=== PATIENT | female | born 1945 | race African-American/Black ===

== ENCOUNTER 2018-07-31 16:03 | Emergency (ER) | payer OTHER ==
[2018-07-31 17:03] LABS: Absolute Lymphocytes (CBC) 2.7 K/uL (0.7-4.9); Absolute Monocytes 0.3 K/uL (0.1-1.3); Absolute Neutrophil 1.2 K/uL (1.8-8.0); Hematocrit 33.4 % (36.0-45.0); Lymphocytes % 63.3 % (15.3-44.8); MPV 10.3 fL (7.6-11.3); Monocytes % 7.9 % (3.3-12.3); RBC Red Blood Cell Count 3.89 M/uL (3.86-4.86)
[2018-07-31 17:19] LABS: Albumin 2.8 g/dL (3.4-5.0); Bilirubin Total 0.7 mg/dL (0.2-1.0); Protein, Total 8.3 g/dL (6.4-8.2)
[2018-07-31 17:21] LABS: Potassium 2.7 mmol/L (3.5-5.1)
[2018-07-31 17:27] LABS: Blood Morphology Comment NOTED (NOT SEEN); Target Cells 2+
[2018-07-31 17:30] LABS: Platelet Estimate ADEQ
[2018-07-31 17:31] LABS: Platelets, Giant NOTED
[2018-07-31] MEDS ORDERED: NA CHLORIDE 0.9% 250 ML ONE (17:35)
[2018-07-31] MEDS ORDERED: KCL 20 MEQ/100 mL IVPB 20 MEQ/100 ML BAG IV ONE (17:35)
[2018-07-31] MEDS ORDERED: POTASSIUM 25 MEQ EFFERV TAB ONE (17:35)
[2018-07-31 20:23] LABS: BUN Blood Urea Nitrogen 8 mg/dL (7-18); Bicarbonate 28 mmol/L (21-32); Glucose Level 74 mg/dL (74-106); Potassium 3.8 mmol/L (3.5-5.1); Sodium Level 138 mmol/L (136-145)
--- NOTE | 2018-07-31 21:01 | EDPHYS ---
Physician Documentation [facility] Name: Karol Beckett Age: 72 yrs Sex: Female : 1945 Arrival Date: 07/31/2018 Time: 16:05 Bed 26 Private MD: Dario Valles R ED Physician Seth Ochoa HPI: 07/31 16:35 This 72 yrs old Black Female presents to ER via Ambulatory with complaints of Skin cp Sore(s). 16:35 The patient's rash thought to be caused by an unknown cause. The rash is located on the cp body diffusely. The rash can be described as erythematous, papular. Onset: The symptoms/episode began/occurred this morning. Associated signs and symptoms: Pertinent positives: weight loss, Pertinent negatives: difficulty breathing, fever, itching. 16:35 The patient has experienced similar episodes in the past, multiple times, Patient cp reports recently finishing RX for oral antibiotic. 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 - Social history:: Smoking status: Patient/guardian denies using tobacco. - Ebola Screening: : Patient negative for fever greater than or equal to 101.5 degrees Fahrenheit, and additional compatible Ebola Virus Disease symptoms Patient denies exposure to infectious person Patient denies travel to an Ebola-affected area in the 21 days before illness onset No symptoms or risks identified at this time. ROS: 16:40 Constitutional: Positive for weight loss, Negative for body aches, chills, fever. cp 16:40 Eyes: Negative for injury, pain, redness, and discharge. cp 16:40 ENT: Negative for ear pain, sore throat, difficulty swallowing, difficulty handling secretions. 16:40 Cardiovascular: Negative for chest pain, edema, palpitations. 16:40 Respiratory: Negative for cough, shortness of breath, wheezing. 16:40 Abdomen/GI: Negative for abdominal pain, nausea, vomiting, and diarrhea, constipation. 16:40 : Negative for urinary symptoms. 16:40 Skin: Positive for rash, diffusely. 16:40 Neuro: Negative for altered mental status, headache, weakness. 16:40 All other systems are negative. Exam: 16:45 Constitutional: The patient appears in no acute distress, alert, awake, cp non-diaphoretic, non-toxic, well developed, well nourished. 16:45 Head/face: Exam is negative for obvious evidence of injury or deformity. cp 16:45 Eyes: Pupils: equal, round, and reactive to light and accomodation, Extraocular movements: intact throughout, Conjunctiva: normal, no exudate, no injection, Sclera: no appreciated abnormality, Lids and lashes: appear normal, bilaterally. 16:45 ENT: External ear(s): are unremarkable, Ear canal(s): are normal, clear, TM's: dullness, bilaterally, Nose: is normal, Mouth: Lips: moist, Oral mucosa: pink and intact, moist, Posterior pharynx: is normal, airway is patent, no erythema, no exudate, Voice: is normal. 16:45 Cardiovascular: Rate: normal, Rhythm: regular. 16:45 Respiratory: the patient does not display signs of respiratory distress, Respirations: normal, no use of accessory muscles, no retractions, no splinting, no tachypnea, labored breathing, is not present, Breath sounds: are clear throughout, no decreased breath sounds, no stridor, no wheezing. 16:45 Abdomen/GI: Exam negative for discomfort, distension, guarding. 16:45 Skin: rash can be described as erythematous, papular, multiple are open with scant drainage and mild swelling. 16:45 Neuro: Orientation: to person, place \T\ time. Mentation: is normal. 17:50 ECG was reviewed by the Attending Physician. cp Vital Signs: 16:09 BP 129 / 99; Pulse 62; Resp 20; Temp 98.5; Pulse Ox 96% on R/A; Weight 74.39 kg; Height aj 5 ft. 8 in. (172.72 cm); 17:48 BP 125 / 84; Pulse 60; Resp 18; Pulse Ox 96% on R/A; tl3 19:21 BP 150 / 74; Pulse 56; Resp 16; Pulse Ox 98% on R/A; tl3 21:45 BP 145 / 78; Pulse 60; Resp 18; Pulse Ox 100% on R/A; Pain 0/10; mg2 16:09 Body Mass Index 24.94 (74.39 kg, 172.72 cm) aj MDM: 16:13 Patient medically screened. cp 17:00 Differential diagnosis: allergic reaction, cellulitis, staph, MRSA, abscess. cp 21:00 Data reviewed: vital signs, nurses notes, lab test result(s), EKG, and as a result, I cp will discharge patient. 21:00 Counseling: I had a detailed discussion with the patient and/or guardian regarding: the cp historical points, exam findings, and any diagnostic results supporting the discharge/admit diagnosis, lab results, the need for outpatient follow up, a family practitioner, to return to the emergency department if symptoms worsen or persist or if there are any questions or concerns that arise at home. Response to treatment: the patient's symptoms have markedly improved after treatment, and as a result, I will discharge patient. 07/31 16:32 Order name: CBC with Diff 07/31 16:32 Order name: CMP 07/31 17:05 Order name: CBC with Automated Diff; Complete Time: 17:48 EDMS 07/31 17:48 Interpretation: Normal except: WBC 4.2; HGB 11.0; HCT 33.4; MCV 85.9; KITA% 27.8; LYM% cp 63.3; NEUT A 1.2. 07/31 17:22 Order name: Comprehensive Metabolic Panel; Complete Time: 17:48 EDMS 07/31 17:49 Interpretation: Normal except: K 2.7; GFR 66; AST 59; ALK 43; CA 7.6; TP 8.3; ALB 2.8; cp A/G 0.5; GLOB 5.5. 07/31 17:28 Order name: Manual Differential; Complete Time: 17:48 EDMS 07/31 17:49 Interpretation: Normal except: SEGS 32; LYM 56. cp 07/31 18:17 Order name: BMP: redraw after administration of potassium cp 07/31 16:32 Order name: IV; Complete Time: 16:53 cp 07/31 17:31 Order name: EKG - Nurse/Tech; Complete Time: 17:47 mg2 07/31 20:23 Order name: Basic Metabolic Panel; Complete Time: 20:58 EDMS 07/31 20:59 Interpretation: Normal except: CA 7.5. EC:50 Rate is 54 beats/min. Rhythm is regular. KS interval is normal. QRS interval is cp prolonged at 132 msec. QT interval is normal. Interpreted by me. Reviewed by me. Administered Medications: 17:45 Drug: Potassium Effervescent Tablet 50 mEq Route: PO; tl3 17:49 Follow up: Response: No adverse reaction tl3 17:45 Drug: Potassium Chloride 20 mEq Route: IV; Rate: calculated rate; Site: right forearm; tl3 Delivery: Primary tubing; 21:46 Follow up: Response: No adverse reaction; IV Status: Completed infusion mg2 Disposition: 22:00 Chart complete. cp Disposition: 07/31/18 21:00 Discharged to Home. Impression: Hypokalemia, Other local infections of skin and subcutaneous tissue. - Condition is Stable. - Discharge Instructions: Potassium Content of Foods, Hypokalemia. - Prescriptions for Bactrim DS 800- 160 mg Oral Tablet - take 1 tablet by ORAL route every 12 hours for 10 days; 20 tablet. Potassium Chloride 10 mEq Oral Capsule, Sustained Release - take 1 tablet by ORAL route once daily for 5 days; 5 tablet. - Medication Reconciliation Form, Thank You Letter, Antibiotic Education, Prescription Opioid Use form. - Follow up: Private Physician; When: 2 - 3 days; Reason: Recheck today's complaints. - Problem is an ongoing problem. - Symptoms have improved. Addendum: 08/02/2018 03:51 Co-signature as Attending Physician, Seth Ochoa MD I agree with the assessment and t w4 plan of care. Signatures: Dispatcher [employer] EDMichelle Vargas RN RN Dago Zaman PA PA cp Wadley, Terrence, MD MD tw4 Hillary Ramirez RN RN tl3 Alfredo Perez RN RN mg2 Corrections: (The following items were deleted from the chart) 07/31 17:49 17:49 Normal except: K 2.7; GFR 66; AST 59; ALK 43; CA 7.6; TP 8.3; ALB 2.8. cp cp 17:49 17:49 Normal except: K 2.7; GFR 66; AST 59; ALK 43; CA 7.6; TP 8.3; ALB 2.8; A/G 0.5. cpcp 20:59 20:58 Normal except. cp cp 21:46 21:00 07/31/2018 21:00 Discharged to Home. Impression: Hypokalemia; Other local mg2 infections of skin and subcutaneous tissue. Condition is Stable. Prescriptions for Bactrim DS 800-160 mg Oral Tablet - take 1 tablet by ORAL route every 12 hours for 10 days; 20 tablet. and Forms are Medication Reconciliation Form, Thank You Letter, Antibiotic Education, Prescription Opioid Use. Follow up: Private Physician; When: 2 - 3 days; Reason: Recheck today's complaints. Problem is an ongoing problem. Symptoms have improved. cp
--- NOTE | 2018-07-31 21:01 | ER ---
Nurse's Notes [facility] Name: Karol Beckett Age: 72 yrs Sex: Female : 1945 Arrival Date: 07/31/2018 Time: 16:05 Bed 26 Private MD: Dario Valles R Diagnosis: Hypokalemia;Other local infections of skin and subcutaneous tissue Presentation: 07/31 16:07 Presenting complaint: Patient states: Itchy red rash that started this AM. Patient aj reports being treated for "staph infection" on head for 1 month. Also reports 20 lb weight loss. Transition of care: patient was not received from another setting of care. Onset of symptoms was June 30, 2018. Risk Assessment: Do you want to hurt yourself or someone else? Patient reports no desire to harm self or others. Initial Sepsis Screen: Does the patient meet any 2 criteria? No. Patient's initial sepsis screen is negative. Does the patient have a suspected source of infection? No. Patient's initial sepsis screen is negative. Care prior to arrival: None. 16:07 Method Of Arrival: Ambulatory 16:07 Acuity: EITAN 3 Triage Assessment: 16:09 General: Appears in no apparent distress. comfortable, Behavior is calm, cooperative, aj appropriate for age. Pain: Denies pain. Neuro: Level of Consciousness is awake, alert, obeys commands, Oriented to person, place, time, situation, Appropriate for age. Respiratory: Airway is patent Respiratory effort is even, unlabored, Respiratory pattern is regular, symmetrical. Derm: Skin is intact, is healthy with good turgor, Skin is pink, warm \\T\\ dry. normal, Rash noted that is itchy, red. 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 - Social history:: Smoking status: Patient/guardian denies using tobacco. - Ebola Screening: : Patient negative for fever greater than or equal to 101.5 degrees Fahrenheit, and additional compatible Ebola Virus Disease symptoms Patient denies exposure to infectious person Patient denies travel to an Ebola-affected area in the 21 days before illness onset No symptoms or risks identified at this time. Screenin:29 Abuse screen: Denies threats or abuse. Nutritional screening: No deficits noted. tl3 Tuberculosis screening: No symptoms or risk factors identified. Fall Risk None identified. Assessment: 16:29 General: Appears uncomfortable, well groomed, well developed, well nourished, Behavior tl3 is calm, cooperative, appropriate for age. Pain: Complains of pain in generalized at rash/lesion sites. Neuro: Level of Consciousness is awake, alert, obeys commands, Oriented to person, place, time, situation, Appropriate for age. Cardiovascular: Patient's skin is warm and dry. Respiratory: Airway is patent Respiratory effort is even, unlabored, Respiratory pattern is regular, symmetrical. GI: No signs and/or symptoms were reported involving the gastrointestinal system. : No signs and/or symptoms were reported regarding the genitourinary system. EENT: No signs and/or symptoms were reported regarding the EENT system. Derm: Skin has lesions on generalized on body. 16:31 Reassessment: pt reports that she has had a staff infection for over a month, she has tl3 just finished the second abx ( Clindamycin) yesterday. New areas of concern to face and neck and shoulders, states that anywhere she has a break in the skin, it becomes red and then crusty. Crusty lesions noted to various body areas, brown and dry, no oozing or weepy lesions noted. 17:21 Reassessment: critical lab result of K-2.7 mmol relayed by TeraDiode Caroline, provider mg2 informed. 17:48 Reassessment: Patient appears in no apparent distress at this time. No changes from tl3 previously documented assessment. Patient and/or family updated on plan of care and expected duration. Pain level reassessed. Patient is alert, oriented x 3, equal unlabored respirations, skin warm/dry/pink. 19:21 Reassessment: Patient appears in no apparent distress at this time. No changes from tl3 previously documented assessment. Patient and/or family updated on plan of care and expected duration. Pain level reassessed. Patient is alert, oriented x 3, equal unlabored respirations, skin warm/dry/pink. pt has no needs at this time. Vital Signs: 16:09 BP 129 / 99; Pulse 62; Resp 20; Temp 98.5; Pulse Ox 96% on R/A; Weight 74.39 kg; Height aj 5 ft. 8 in. (172.72 cm); 17:48 BP 125 / 84; Pulse 60; Resp 18; Pulse Ox 96% on R/A; tl3 19:21 BP 150 / 74; Pulse 56; Resp 16; Pulse Ox 98% on R/A; tl3 21:45 BP 145 / 78; Pulse 60; Resp 18; Pulse Ox 100% on R/A; Pain 0/10; mg2 16:09 Body Mass Index 24.94 (74.39 kg, 172.72 cm) ED Course: 16:05 Patient arrived in ED. mr 16:05 Dario Valles MD is Private Physician. mr 16:09 Triage completed. aj 16:09 Arm band placed on right wrist. Patient placed in an exam room. aj 16:13 Dago Cole PA is PHCP. cp 16:13 Seth Ochoa MD is Attending Physician. cp 16:20 Hillary Ramirez, TRERY is Primary Nurse. tl3 16:29 Patient has correct armband on for positive identification. Bed in low position. Call tl3 light in reach. Side rails up X 1. 16:29 No provider procedures requiring assistance completed. tl3 16:53 CMP Sent. tl3 16:53 CBC with Diff Sent. tl3 16:53 Initial lab(s) drawn, by tn, sent to lab. Inserted saline lock: 22 gauge in right tl3 forearm, using aseptic technique. Blood collected. 21:44 IV discontinued, intact, bleeding controlled, No redness/swelling at site. Pressure mg2 dressing applied. Administered Medications: 17:45 Drug: Potassium Effervescent Tablet 50 mEq Route: PO; tl3 17:49 Follow up: Response: No adverse reaction tl3 17:45 Drug: Potassium Chloride 20 mEq Route: IV; Rate: calculated rate; Site: right forearm; tl3 Delivery: Primary tubing; 21:46 Follow up: Response: No adverse reaction; IV Status: Completed infusion mg2 Outcome: 21:00 Discharge ordered by . consuelo 21:45 Discharged to home ambulatory. mg2 21:45 Condition: stable 21:45 Discharge instructions given to patient, Instructed on discharge instructions, follow up and referral plans. medication usage, Demonstrated understanding of instructions, follow-up care, medications, Prescriptions given X 2. 21:46 Patient left the ED. mg2 Signatures: Michelle Montalvo, RN RN Sapna Cortes Corey, PA PA cp Lowrey, Tammy, RN RN tl3 Alfredo Perez RN RN mg2
--- NOTE | 2018-08-01 11:47 | EKG ---
Test Date: 2018-07-31 Test Time: 17:40:58 Wire Sawyer: TL MEASUREMENT RESULTS: Intervals: Rate: 54 MI: 170 QRSD: 132 QT: 480 QTc: 455 [place]: P: 52 MI: 170 QRS: 21 T: 68 INTERPRETIVE STATEMENTS: Sinus bradycardia Left bundle branch block Abnormal ECG Compared to ECG 10/31/2012 07:47:42 Sinus rhythm no longer present Electronically Signed On 08-01-18 11:43:06 ASSISTANT PROFESSOR OF SURGERY by Pavel Mason
== END 2018-07-31 21:46 | disposition home or self-care (01) ==
LOC: ER 16:03
DX: E87.6 Hypokalemia (principal); Z90.81 Acquired absence of spleen
CPT/HCPCS: 36415; 80048; 80053; 85025; 93005

== ENCOUNTER 2018-08-04 10:01 | Emergency (ER) | payer OTHER ==
[2018-08-04 10:37] LABS: Protime INR 1.03
--- NOTE | 2018-08-04 10:40 | RAD REPORT ---
EXAM DESCRIPTION: CT - Head Brain Wo Cont - 08/04/2018 10:33 am CLINICAL HISTORY: SYNCOPE Headache, head injury. COMPARISON: No comparisons TECHNIQUE: All CT scans are performed using dose optimization technique as appropriate and may inclu de automated exposure control or mA/KV adjustment according to patient size. FINDINGS: No intracranial hemorrhage, hydrocephalus or extra-axial fluid collection.Mild generalized brain atrophy is present with mild periventricular and deep white matter chronic microvascular ische yaima changes.No areas of brain edema or evidence of midline shift. The paranasal sinuses and mastoids are clear. The calvarium is intact. IMPRESSION: No acute intracranial abnormality.
--- NOTE | 2018-08-04 10:43 | EKG ---
Test Date: 2018-08-04 Test Time: 10:31:51 Cullet Washer: MALGORZATA MEASUREMENT RESULTS: Intervals: Rate: 51 AR: 188 QRSD: 134 QT: 520 QTc: 479 [place]: P: 55 AR: 188 QRS: 33 T: 63 INTERPRETIVE STATEMENTS: Sinus bradycardia Left bundle branch block Abnormal ECG Compared to ECG 07/31/2018 17:40:58 No significant changes Electronically Signed On 08-04-18 10:42:38 BIOTECH PRODUCTION SPECIALIST by Pavel Mason
[2018-08-04 10:58] LABS: Absolute Lymphocytes (CBC) 1.9 K/uL (0.7-4.9); Absolute Monocytes 0.4 K/uL (0.1-1.3); Absolute Neutrophil 0.9 K/uL (1.8-8.0); Basophils % 0.9 % (0-1.3); Hematocrit 31.1 % (36.0-45.0); Lymphocytes % 56.8 % (15.3-44.8); MPV 9.7 fL (7.6-11.3); Monocytes % 10.7 % (3.3-12.3); RBC Red Blood Cell Count 3.59 M/uL (3.86-4.86)
[2018-08-04 11:01] LABS: Albumin 2.7 g/dL (3.4-5.0); Bilirubin Direct 0.7 mg/dL (0-0.2); Bilirubin Total 0.7 mg/dL (0.2-1.0); Magnesium 2.3 mg/dL (1.8-2.4); Potassium 3.5 mmol/L (3.5-5.1); Protein, Total 7.8 g/dL (6.4-8.2); Troponin (Emerg Dept Use Only) 0.03 ng/mL (0.0-0.045)
--- NOTE | 2018-08-04 11:04 | RAD REPORT ---
EXAM DESCRIPTION: RAD - Chest Single View - 08/04/2018 10:52 am CLINICAL HISTORY: Syncope, shortness of breath COMPARISON: March 2014 TECHNIQUE: AP portable chest image was obtained 1039 hours . FINDINGS: Mild scarring changes are present without a focal infiltrate, mass or pulmonary edema neo bobby. Heart size is upper normal. Failure or volume overload are not suspected. No measurable pleural effusion and no pneumothorax. No acute bony abnormality seen. No acute aortic findings suspected. IMPRESSION: No acute cardiopulmonary process. Patient has mild chronic interstitial lung disease.
[2018-08-04 11:46] LABS: Anisocytosis 1+; Blood Morphology Comment NOTED (NOT SEEN); Target Cells 2+
[2018-08-04 11:50] LABS: Platelet Estimate ADEQ
--- NOTE | 2018-08-04 12:10 | EDPHYS ---
Physician Documentation [facility] Name: Karol Beckett Age: 72 yrs Sex: Female : 1945 Arrival Date: 08/04/2018 Time: 10:01 Bed 6 Private MD: ED Physician Joel Cintron HPI: 08/04 10:15 This 72 yrs old Black Female presents to ER via EMS with complaints of Near Syncope. pm1 10:15 The patient has experienced near-syncope, felt faint. Onset: The symptoms/episode pm1 began/occurred just prior to arrival. Duration: This was a single episode. Context: the episode(s) was witnessed, Dr Office Staff, occurred PCP office, occurred while the patient was walking, Just prior to the episode the patient experienced no apparent symptoms. Associated injury: The patient did not suffer any apparent associated injury. Associated signs and symptoms: Pertinent negatives: abdominal pain, chest pain, diarrhea, dizziness, headache, lightheadedness, nausea, numbness, palpitations, shortness of breath, tingling, vertigo, vomiting, weakness. Current symptoms: Currently, the patient is not experiencing any symptoms, the patient feels back to baseline. The patient has not experienced similar symptoms in the past. The patient has been recently seen by a physician: the patient's primary care provider, Dr. Valles with different complaint(s), the patient was seen for skin infection, Given prescription for Benadryl. Currently taking bactrim PO. Patient with skin infection diffusely present for the past 2 months. Seen by PCP, book critic and ER. Has completed clindamycin, mupirocin nasally weekly. Wednesday seen in the ER here and given chlorhexidine to use as body wash and reports that her symptoms worsened since then. Patient followed up with Dr. Valles today and was at the desk paying for her visit. she had a near syncopal episode and was caught by the staff and guided to the floor. No injury or pain. Historical: - Allergies: 10:07 No Known Allergies; bp - Home Meds: 10:07 Combigan 0.2-0.5 % ophthalmic drop 1 drop every 12 hours [Active]; Clindamycin Oral bp [Active]; - PMHx: 10:07 Glaucoma; STAPH INFECTION; bp - Immunization history:: Adult Immunizations up to date. - Social history:: Smoking status: Patient/guardian denies using tobacco. - Ebola Screening: : Patient negative for fever greater than or equal to 101.5 degrees Fahrenheit, and additional compatible Ebola Virus Disease symptoms Patient denies exposure to infectious person Patient denies travel to an Ebola-affected area in the 21 days before illness onset No symptoms or risks identified at this time. ROS: 10:15 Constitutional: Negative for fever, chills, and weight loss, Eyes: Negative for injury, pm1 pain, redness, and discharge, ENT: Negative for injury, pain, and discharge, Neck: Negative for injury, pain, and swelling, Cardiovascular: Negative for chest pain, palpitations, and edema, Respiratory: Negative for shortness of breath, cough, wheezing, and pleuritic chest pain, Abdomen/GI: Negative for abdominal pain, nausea, vomiting, diarrhea, and constipation, Back: Negative for injury and pain, : Negative for injury, bleeding, discharge, and swelling, MS/Extremity: Negative for injury and deformity. 10:15 Skin: Positive for cellulitis, diffusely, Negative for abscesses. 10:15 Neuro: Positive for near syncope, Negative for altered mental status, dizziness, headache, numbness, seizure activity, tingling, weakness. Exam: 10:15 Abdomen/GI: Exam negative for abnormal bowel sounds, discomfort, distension, guarding, pm1 masses, Inspection: abdomen appears normal, Bowel sounds: normal, in all quadrants, Palpation: abdomen is soft and non-tender. 10:15 Constitutional: This is a well developed, well nourished patient who is awake, alert, and in no acute distress. Head/Face: Normocephalic, atraumatic. Eyes: Pupils equal round and reactive to light, extra-ocular motions intact. Lids and lashes normal. Conjunctiva and sclera are non-icteric and not injected. Cornea within normal limits. Periorbital areas with no swelling, redness, or edema. ENT: Nares patent. No nasal discharge, no septal abnormalities noted. Tympanic membranes are normal and external auditory canals are clear. Oropharynx with no redness, swelling, or masses, exudates, or evidence of obstruction, uvula midline. Mucous membranes moist. Neck: Trachea midline, no thyromegaly or masses palpated, and no cervical lymphadenopathy. Supple, full range of motion without nuchal rigidity, or vertebral point tenderness. No Meningismus. Chest/axilla: Normal chest wall appearance and motion. Nontender with no deformity. No lesions are appreciated. Cardiovascular: Regular rate and rhythm with a normal S1 and S2. No gallops, murmurs, or rubs. Normal PMI, no JVD. No pulse deficits. Respiratory: Lungs have equal breath sounds bilaterally, clear to auscultation and percussion. No rales, rhonchi or wheezes noted. No increased work of breathing, no retractions or nasal flaring. Abdomen/GI: Soft, non-tender, with normal bowel sounds. No distension or tympany. No guarding or rebound. No evidence of tenderness throughout. Back: No spinal tenderness. No costovertebral tenderness. Full range of motion. MS/ Extremity: Pulses equal, no cyanosis. Neurovascular intact. Full, normal range of motion. Neuro: Awake and alert, GCS 15, oriented to person, place, time, and situation. Cranial nerves II-XII grossly intact. Motor strength 5/5 in all extremities. Sensory grossly intact. Cerebellar exam normal. Normal gait. 10:15 Skin: Appearance: normal except for affected area, consistent with contact dermatitis. Vital Signs: 10:07 BP 109 / 77; Pulse 48; Resp 14; Temp 97.9; Pulse Ox 99% ; Weight 73.48 kg; Height 5 ft. bp 8 in. (172.72 cm); 11:48 BP 114 / 65; Pulse 45; Resp 12; Pulse Ox 99% ; bp 12:30 BP 107 / 69; Pulse 47; Resp 14; Pulse Ox 95% ; bp 10:07 Body Mass Index 24.63 (73.48 kg, 172.72 cm) bp MDM: 10:09 Patient medically screened. pm1 12:07 Data reviewed: vital signs. Data interpreted: Pulse oximetry: on room air is 99 %. pm1 Interpretation: normal. Counseling: I had a detailed discussion with the patient and/or guardian regarding: the historical points, exam findings, and any diagnostic results supporting the discharge/admit diagnosis, lab results, radiology results, the need for outpatient follow up, for definitive care, a book critic, an infectious disease specialist, to return to the emergency department if symptoms worsen or persist or if there are any questions or concerns that arise at home. 08/04 10:08 Order name: Basic Metabolic Panel; Complete Time: 11:26 pm08/04 10:08 Order name: CBC with Diff; Complete Time: 11:53 pm08/04 10:08 Order name: LFT's; Complete Time: 11:26 pm08/04 10:08 Order name: Magnesium; Complete Time: 11:26 pm08/04 10:08 Order name: NT PRO-BNP; Complete Time: 11:26 pm08/04 10:08 Order name: PT-INR; Complete Time: 11:26 pm08/04 10:08 Order name: Troponin (emerg Dept Use Only); Complete Time: 11: pm08/04 10:08 Order name: XRAY Chest (1 view); Complete Time: 11: pm08/04 10:08 Order name: EKG; Complete Time: 10:09 pm08/04 10:08 Order name: Cardiac monitoring; Complete Time: 10:23 pm08/04 10:08 Order name: EKG - Nurse/Tech; Complete Time: 10:44 pm08/04 10:10 Order name: Head Brain Wo Cont; Complete Time: 11:26 EDMS 08/04 11:00 Order name: Manual Differential; Complete Time: 11:53 EDMS 08/04 10:08 Order name: IV Saline Lock; Complete Time: 10:24 pm08/04 10:08 Order name: Labs collected and sent; Complete Time: 10:24 pm08/04 10:08 Order name: O2 Per Protocol; Complete Time: 10:24 pm08/04 10:08 Order name: O2 Sat Monitoring; Complete Time: 10:24 pm1 Administered Medications: No medications were administered Point of Care Testing: Blood Glucose: 10:07 Blood Glucose: 80 mg/dL; bp Ranges: Critical Glucose Levels:Adult <50 mg/dl or >400 mg/dl <40 mg/dl or >180 mg/dl Disposition: 08/04/18 12:09 Discharged to Home. Impression: Syncope and collapse, Other local infections of skin and subcutaneous tissue. - Condition is Stable. - Discharge Instructions: Contact Dermatitis, Near-Syncope. - Prescriptions for Medrol (Yrn) 4 mg Oral Tablets, Dose Pack - take 1 tablet by ORAL route as directed - follow package instructions; 1 packet. - Medication Reconciliation Form, Thank You Letter, Antibiotic Education, Prescription Opioid Use form. - Follow up: Emergency Department; When: As needed; Reason: Worsening of condition. Follow up: Private Physician; When: 2 - 3 days; Reason: Recheck today's complaints, Continuance of care, Re-evaluation by your physician. - Problem is new. - Symptoms have improved. Addendum: 08/11/2018 08:51 Co-signature as Attending Physician, Joel Cintron MD I agree with the assessment and k dr plan of care. Signatures: Dispatcher [employer] [facility] Joel Cintron MD MD kdr Get Davila, DINKEY ENGINE MECHANIC DINKEY ENGINE MECHANIC pm1 Stevie Giordano, RN RN bp Corrections: (The following items were deleted from the chart) 08/04 10:32 10:10 Head Brain Wo Cont+CT.RAD.BRZ ordered. [facility] 12:10 12:09 08/04/2018 12:09 Discharged to Home. Impression: Syncope and collapse. Condition pm1 is Stable. Forms are Medication Reconciliation Form, Thank You Letter, Antibiotic Education, Prescription Opioid Use. Follow up: Emergency Department; When: As needed; Reason: Worsening of condition. Follow up: Private Physician; When: 2 - 3 days; Reason: Recheck today's complaints, Continuance of care, Re-evaluation by your physician. Problem is new. Symptoms have improved. pm1 12:57 12:10 08/04/2018 12:09 Discharged to Home. Impression: Syncope and collapse; Other bp local infections of skin and subcutaneous tissue. Condition is Stable. Discharge Instructions: Near-Syncope. Forms are Medication Reconciliation Form, Thank You Letter, Antibiotic Education, Prescription Opioid Use. Follow up: Emergency Department; When: As needed; Reason: Worsening of condition. Follow up: Private Physician; When: 2 - 3 days; Reason: Recheck today's complaints, Continuance of care, Re-evaluation by your physician. Problem is new. Symptoms have improved. pm1
--- NOTE | 2018-08-04 12:10 | ER ---
Nurse's Notes [facility] Name: Karol Beckett Age: 72 yrs Sex: Female : 1945 Arrival Date: 08/04/2018 Time: 10:01 Bed 6 Private MD: Diagnosis: Syncope and collapse;Other local infections of skin and subcutaneous tissue Presentation: 08/04 10:04 Presenting complaint: Patient states: WITNESSED SYNCOPE AT PCP OFFICE. Transition of bp care: patient was received from another setting of care (ambulatory primary care physician practice), DR. Hirsch Onset of symptoms was August 04, 2018 at 09:30. Risk Assessment: Do you want to hurt yourself or someone else? Patient reports no desire to harm self or others. Initial Sepsis Screen: Does the patient meet any 2 criteria? No. Patient's initial sepsis screen is negative. Does the patient have a suspected source of infection? No. Patient's initial sepsis screen is negative. Care prior to arrival: Glucose check: 80. 10:04 Method Of Arrival: EMS: [facility] bp 10:04 Acuity: EITAN 3 bp Triage Assessment: 10:07 General: Appears in no apparent distress. comfortable, slender, Behavior is calm, bp cooperative, appropriate for age. Pain: Denies pain. Neuro: Level of Consciousness is awake, alert, obeys commands, Oriented to person, place, time, situation, Appropriate for age Reports a syncopal episode. Historical: - Allergies: 10:07 No Known Allergies; bp - Home Meds: 10:07 Combigan 0.2-0.5 % ophthalmic drop 1 drop every 12 hours [Active]; Clindamycin Oral bp [Active]; - PMHx: 10:07 Glaucoma; STAPH INFECTION; bp - Immunization history:: Adult Immunizations up to date. - Social history:: Smoking status: Patient/guardian denies using tobacco. - Ebola Screening: : Patient negative for fever greater than or equal to 101.5 degrees Fahrenheit, and additional compatible Ebola Virus Disease symptoms Patient denies exposure to infectious person Patient denies travel to an Ebola-affected area in the 21 days before illness onset No symptoms or risks identified at this time. Screenin:25 Abuse screen: Denies threats or abuse. Denies injuries from another. Nutritional bp screening: No deficits noted. Tuberculosis screening: No symptoms or risk factors identified. Fall Risk Fall in past 12 months (25 points). No secondary diagnosis (0 pts). IV access (20 points). Ambulatory Aid- None/Bed Rest/Nurse Assist (0 pts). Gait- Normal/Bed Rest/Wheelchair (0 pts) Mental Status- Oriented to own ability (0 pts). Total Newby Fall Scale indicates High Risk Score (45 or more points). Fall prevention measures have been instituted. Side Rails Up X 2 Placed Close to Nursing Station Frequent Obs/Assessments Occuring As available patient and family educated on Fall Prevention Program and Strategies. Assessment: 10:10 General: SEE TRIAGE NOTE. Neuro: Level of Consciousness is awake, alert, obeys bp commands, Oriented to person, place, time, situation, Appropriate for age Reports a syncopal episode. Cardiovascular: Rhythm is sinus bradycardia. 11:48 Reassessment: ALL CURRENT ORDERS COMPLETED, SB ON MONITOR, RESULTS PENDING. bp 12:56 Reassessment: PT D/C HOME AMBULATORY, DX WITH SYNCOPE. bp Vital Signs: 10:07 BP 109 / 77; Pulse 48; Resp 14; Temp 97.9; Pulse Ox 99% ; Weight 73.48 kg; Height 5 ft. bp 8 in. (172.72 cm); 11:48 BP 114 / 65; Pulse 45; Resp 12; Pulse Ox 99% ; bp 12:30 BP 107 / 69; Pulse 47; Resp 14; Pulse Ox 95% ; bp 10:07 Body Mass Index 24.63 (73.48 kg, 172.72 cm) bp ED Course: 10:01 Patient arrived in ED. bp 10:04 Stevie Giordano, TERRY is Primary Nurse. bp 10:05 Triage completed. bp 10:07 Get Davila NP is PHCP. pm1 10:07 Joel Cintron MD is Attending Physician. pm1 10:07 Arm band placed on. bp 10:10 Inserted saline lock: 22 gauge in right forearm, using aseptic technique. Blood bp collected. 10:26 Patient has correct armband on for positive identification. Bed in low position. Call bp light in reach. Side rails up X2. 10:33 Head Brain Wo Cont In Process Unspecified. EDMS 10:46 X-ray completed. Portable x-ray completed in exam room. Patient tolerated procedure mh1 well. 10:52 EKG done, by exercise equipment repair technician. reviewed by Get Davila NP. at1 10:53 XRAY Chest (1 view) In Process Unspecified. EDMS 12:56 No provider procedures requiring assistance completed. IV discontinued, intact, bp bleeding controlled, No redness/swelling at site. Pressure dressing applied. Administered Medications: No medications were administered Point of Care Testing: Blood Glucose: 10:07 Blood Glucose: 80 mg/dL; bp Ranges: Outcome: 12:09 Discharge ordered by MD. pm1 12:56 Discharged to home ambulatory. bp 12:56 Condition: stable 12:56 Discharge instructions given to patient, Instructed on discharge instructions, follow up and referral plans. medication usage, Demonstrated understanding of instructions, follow-up care, medications, Prescriptions given X 1. 12:57 Patient left the ED. bp Signatures: Dispatcher [employer] EDMS Lisa Elmore mh1 Michelle Tran, song writer EKG Tat1 Get Davila, DOMINIQUE TECHNICAL SPECIALIST CYTOGENETICS pm1 Stevie Giordano, RN RN bp
== END 2018-08-04 12:57 | disposition home or self-care (01) ==
LOC: ER 10:01
DX: L08.89 Other specified local infections of the skin and subcutaneous tissue (principal)
CPT/HCPCS: 36415; 70450; 71045; 80048; 80076; 83735; 83880; 84484; 85025; 85610; 93005; 99284

== ENCOUNTER 2018-08-31 18:18 | Emergency (ER) | payer OTHER ==
--- NOTE | 2018-08-31 19:22 | RAD REPORT ---
EXAM DESCRIPTION: RAD - Chest Single View - 08/31/2018 7:11 pm CLINICAL HISTORY: left eye vision change Chest pain. COMPARISON: Chest Single View dated 08/04/2018; CHEST PA AND LAT 2 VIEW dated 03/29/2014; CHEST PA AND LAT 2 VIEW dated 08/05/2013; CHEST SINGLE VIEW dated 10/31/2012 FINDINGS: Portable technique limits examination quality. Mild elevation left hemidiaphragm is seen. The lungs are clear of acute infiltrate. The heart is norm al in size. No displaced fractures.
[2018-08-31 19:25] LABS: Hematocrit 32.4 % (36.0-45.0); MPV 8.3 fL (7.6-11.3); RBC Red Blood Cell Count 3.67 M/uL (3.86-4.86)
[2018-08-31 19:27] LABS: Protime INR 1.04
[2018-08-31 19:40] LABS: Albumin 3.6 g/dL (3.4-5.0); Bilirubin Direct 0.2 mg/dL (0-0.2); Bilirubin Total 0.5 mg/dL (0.2-1.0); Magnesium 2.1 mg/dL (1.8-2.4); Potassium 3.8 mmol/L (3.5-5.1); Protein, Total 8.1 g/dL (6.4-8.2)
[2018-08-31 20:02] LABS: Blood Morphology Comment NOT SEEN (NOT SEEN); Platelet Estimate ADEQ
--- NOTE | 2018-08-31 20:10 | RAD REPORT ---
EXAM DESCRIPTION: CT - Head Brain Wo Cont - 08/31/2018 8:02 pm CLINICAL HISTORY: VISUAL DISTURBANCES Headache, drowsiness, TIA/ CVA. COMPARISON: Head Brain Wo Cont dated 08/04/2018 TECHNIQUE: All CT scans are performed using dose optimization technique as appropriate and may inclu de automated exposure control or mA/KV adjustment according to patient size. FINDINGS: No intracranial hemorrhage, hydrocephalus or extra-axial fluid collection.No areas of brai n edema or evidence of midline shift. The paranasal sinuses and mastoids are clear. The calvarium is intact. IMPRESSION: No acute intracranial abnormality.
--- NOTE | 2018-08-31 20:15 | RAD REPORT ---
EXAM DESCRIPTION: CT - Neck Angio - 08/31/2018 8:02 pm CLINICAL HISTORY: vision changes CVA/TIA COMPARISON: <Comparisons> TECHNIQUE: CT angiography of the neck vessels was performed with MIPs. All CT scans are performed using dose optimization technique as appropriate and may include automated exposure control or mA/KV adjustment according to patient size. FINDINGS: A left aortic arch is identified with bovine configuration of the great vessels. No significant flow abnormality is seen of the common carotid bilaterally. Mild carotid narrowing is seen involving both carotid bulbs. No significant carotid stenosis identifi ed. Normal flow is seen within both vertebral arteries. IMPRESSION: No significant carotid stenosis is identified. Mild narrowing in both carotid bulbs is p resent cause predominately by soft plaque.
--- NOTE | 2018-08-31 20:23 | RAD REPORT ---
EXAM DESCRIPTION: CT - Head angio - 08/31/2018 8:02 pm CLINICAL HISTORY: VISUAL DISTURBANCES CVA, TIA, visual disturbance COMPARISON: <Comparisons> TECHNIQUE: CT angiography of the head was performed with MIPs. All CT scans are performed using dose optimization technique as appropriate and may include automated exposure control or mA/KV adjustment according to patient size. FINDINGS: No evidence of aneurysm is detected. No flow-limiting stenosis or vascular malformation id entified. Antegrade flow is seen in the vertebral arteries. The vertebral arteries are codominant. The visualized dural venous sinuses are patent. IMPRESSION: No significant flow abnormality is detected.
--- NOTE | 2018-08-31 20:42 | ER ---
Nurse's Notes [facility] Name: Karol Beckett Age: 72 yrs Sex: Female : 1945 Arrival Date: 08/31/2018 Time: 18:21 Bed 6 Private MD: Dario Valles R Diagnosis: Amaurosis fugax-left eye Presentation: 08/31 18:24 Presenting complaint: Patient states: Yesterday at 1500 pt reports sudden loss of jl7 vision of the left eye that lasted approximately 1 min, no other symptoms reported, denies weakness. Pt went to see Dr. Gray today at 1700 and he sent her to the ER with an order for a carotid Doppler, pt reports he told her this is a sign of impending stroke. Transition of care: patient was received from another setting of care (ambulatory specialty care practice), Dr. Gray. Onset of symptoms was August 30, 2018 at 15:00. Risk Assessment: Do you want to hurt yourself or someone else? Patient reports no desire to harm self or others. Initial Sepsis Screen: Does the patient meet any 2 criteria? No. Patient's initial sepsis screen is negative. Does the patient have a suspected source of infection? No. Patient's initial sepsis screen is negative. Care prior to arrival: None. 18:24 Method Of Arrival: Ambulatory [facility] 18:24 Acuity: EITAN 3 jl7 Historical: - Allergies: 09/01 10:08 Clindamycin; iw - Home Meds: 08/31 18:33 Combigan 0.2-0.5 % ophthalmic drop 1 drop every 12 hours [Active]; Azopt ophthalmic jl7 ophthalmic [Active]; levothyroxine oral [Active]; Durezol ophthalmic ophthalmic [Active]; - PMHx: 18:33 Glaucoma; staph infection; Non-Hodgkins Lymphoma; jl7 - Immunization history:: Adult Immunizations up to date. - Social history:: Smoking status: Patient/guardian denies using tobacco. - Ebola Screening: : No symptoms or risks identified at this time. Screenin:50 Abuse screen: Denies threats or abuse. Nutritional screening: No deficits noted. ea Tuberculosis screening: No symptoms or risk factors identified. Fall Risk Assessment: 21:08 Reassessment: Patient and/or family updated on plan of care and expected duration. Pain ea level reassessed. Patient is alert, oriented x 3, equal unlabored respirations, skin warm/dry/pink. Discharge instructions given to patient, verbalized the understanding of instructions Patient states symptoms have improved. Vital Signs: 18:33 BP 149 / 87; Pulse 88; Resp 16 S; Temp 97.4(O); Pulse Ox 98% on R/A; Weight 72.57 kg jl7 (R); Height 5 ft. 8 in. (172.72 cm) (R); Pain 0/10; 20:45 BP 135 / 70; Pulse 80; Resp 18; Pulse Ox 99% ; ea 18:33 Body Mass Index 24.33 (72.57 kg, 172.72 cm) jl7 ED Course: 18:21 Patient arrived in ED. mr 18:22 Dario Valles MD is Private Physician. mr 18:28 Triage completed. jl7 18:33 Arm band placed on right wrist. jl7 18:36 Regla Horowitz RN is Primary Nurse. aj1 18:40 Get Davila NP is PHCP. pm1 18:40 Alfredo Jiménez MD is Attending Physician. pm1 18:58 Radiology exam delayed due to lab results not completed at this time. (BUN/Creatinine). sj 19:07 X-ray completed. Portable x-ray completed in exam room. Patient tolerated procedure az well. 19:12 XRAY Chest (1 view) In Process Unspecified. EDMS 19:19 Radiology exam delayed due to lab results not completed at this time. (BUN/Creatinine). vm2 19:[address] nj 19:50 Patient has correct armband on for positive identification. Bed in low position. Call ea light in reach. 20:02 CT Head Angio In Process Unspecified. EDMS 20:02 CT Neck Angio In Process Unspecified. EDMS 20:02 CT Head Brain wo Cont In Process Unspecified. EDMS 20:40 Checo Tabares MD is Referral Physician. pm1 21:11 No provider procedures requiring assistance completed. IV discontinued, intact, ea bleeding controlled, No redness/swelling at site. Pressure dressing applied. Administered Medications: 21:08 Drug: Aspirin 325 mg Route: PO; ea 21:08 Follow up: Response: Medication administered at discharge. ea Outcome: 20:41 Discharge ordered by . pm1 21:12 Discharged to home ambulatory. ea 21:12 Condition: improved 21:12 Discharge instructions given to patient, Instructed on discharge instructions, follow up and referral plans. Demonstrated understanding of instructions, follow-up care. 21:12 Patient left the ED. ea Signatures: Dispatcher [employer] EDRegla Cobos, RN RN aj1 Sheldon, Sapna Augustin, NaniAlia Mesa RN TERRY iw Get Davila NP IT SYSTEMS ADMINISTRATOR pm1 Satinder Linn Jahala, RN RN jl7 Nisha Sepulveda [facility] Grace Burden RN RN ea Zavala, Araceli az Corrections: (The following items were deleted from the chart) 09/01 10:08 02 18:33 Allergies: cyclizine; priscilla goodwin
--- NOTE | 2018-08-31 20:42 | EDPHYS ---
Physician Documentation [facility] Name: Karol Beckett Age: 72 yrs Sex: Female : 1945 Arrival Date: 08/31/2018 Time: 18:21 Bed 6 Private MD: Dario Valles R ED Physician Alfredo Jiménez HPI: 08/31 18:59 This 72 yrs old Black Female presents to ER via Ambulatory with complaints of Vision pm1 Problem. 18:59 The patient is experiencing Inability to see from left eye that lasted about 1 minute, pm1 to the left eye, caused by an unknown mechanism. Onset: The symptoms/episode began/occurred yesterday, at 15:00. Duration: the symptoms last 1 minute(s). Aggravated by nothing. Alleviated by nothing. Associated signs and symptoms: Pertinent positives: None. Pertinent negatives: None. Patient wears glasses. Severity of symptoms: in the emergency department the symptoms have resolved. The patient has not experienced similar symptoms in the past. The patient has been recently seen by a physician: Dr. Gray. Sent to the ER for carotid Doppler study. Historical: - Allergies: 09/01 10:08 Clindamycin; iw - Home Meds: 08/31 18:33 Combigan 0.2-0.5 % ophthalmic drop 1 drop every 12 hours [Active]; Azopt ophthalmic jl7 ophthalmic [Active]; levothyroxine oral [Active]; Durezol ophthalmic ophthalmic [Active]; - PMHx: 18:33 Glaucoma; staph infection; Non-Hodgkins Lymphoma; jl7 - Immunization history:: Adult Immunizations up to date. - Social history:: Smoking status: Patient/guardian denies using tobacco. - Ebola Screening: : No symptoms or risks identified at this time. ROS: 19:00 Constitutional: Negative for fever, chills, and weight loss. pm1 19:00 ENT: Negative for injury, pain, and discharge, Neck: Negative for injury, pain, and swelling, Cardiovascular: Negative for chest pain, palpitations, and edema, Respiratory: Negative for shortness of breath, cough, wheezing, and pleuritic chest pain, Abdomen/GI: Negative for abdominal pain, nausea, vomiting, diarrhea, and constipation, Back: Negative for injury and pain, : Negative for injury, bleeding, discharge, and swelling, MS/Extremity: Negative for injury and deformity, Skin: Negative for injury, rash, and discoloration, Neuro: Negative for headache, weakness, numbness, tingling, and seizure. 19:00 Eyes: Positive for vision loss, left eye for 1 minute at 1500 yesterday, Negative for blurry vision, discharge, foreign body sensation, pain, redness. Exam: 19:00 Constitutional: This is a well developed, well nourished patient who is awake, alert, pm1 and in no acute distress. Head/Face: Normocephalic, atraumatic. 19:00 ENT: Nares patent. No nasal discharge, no septal abnormalities noted. Tympanic membranes are normal and external auditory canals are clear. Oropharynx with no redness, swelling, or masses, exudates, or evidence of obstruction, uvula midline. Mucous membranes moist. Neck: Trachea midline, no thyromegaly or masses palpated, and no cervical lymphadenopathy. Supple, full range of motion without nuchal rigidity, or vertebral point tenderness. No Meningismus. Chest/axilla: Normal chest wall appearance and motion. Nontender with no deformity. No lesions are appreciated. Cardiovascular: Regular rate and rhythm with a normal S1 and S2. No gallops, murmurs, or rubs. Normal PMI, no JVD. No pulse deficits. Respiratory: Lungs have equal breath sounds bilaterally, clear to auscultation and percussion. No rales, rhonchi or wheezes noted. No increased work of breathing, no retractions or nasal flaring. Abdomen/GI: Soft, non-tender, with normal bowel sounds. No distension or tympany. No guarding or rebound. No evidence of tenderness throughout. Back: No spinal tenderness. No costovertebral tenderness. Full range of motion. Skin: Warm, dry with normal turgor. Normal color with no rashes, no lesions, and no evidence of cellulitis. MS/ Extremity: Pulses equal, no cyanosis. Neurovascular intact. Full, normal range of motion. 19:00 Eyes: Periorbital structures: appear normal, Pupils: dilated, Patient was evaluated by Dr. Gray and eyes were dilated in the office prior to arrival, Extraocular movements: intact throughout, Conjunctiva: no acute changes, Corneas: are normal, no evidence of abrasion, no foreign body, Sclera: no appreciated abnormality, Anterior chamber: normal, no hyphema, Lids and lashes: appear normal. 19:00 Neuro: Orientation: is normal, Mentation: is normal, Cranial nerves: CN II- XII are normal as tested, Cerebellar function: normal finger to nose testing, heel to bailey testing is normal, Motor: is normal, moves all fours, strength is normal, strength is 5/5 in all extremities. Vital Signs: 18:33 BP 149 / 87; Pulse 88; Resp 16 S; Temp 97.4(O); Pulse Ox 98% on R/A; Weight 72.57 kg jl7 (R); Height 5 ft. 8 in. (172.72 cm) (R); Pain 0/10; 20:45 BP 135 / 70; Pulse 80; Resp 18; Pulse Ox 99% ; ea 18:33 Body Mass Index 24.33 (72.57 kg, 172.72 cm) jl7 MDM: 18:40 Patient medically screened. pm1 20:39 Data reviewed: vital signs. Data interpreted: Pulse oximetry: on room air is 98 %. pm1 Interpretation: normal. Counseling: I had a detailed discussion with the patient and/or guardian regarding: the historical points, exam findings, and any diagnostic results supporting the discharge/admit diagnosis, lab results, radiology results, the need for outpatient follow up, a neurologist, to return to the emergency department if symptoms worsen or persist or if there are any questions or concerns that arise at home. 20:45 ED course: Patient with normal vision to both eyes and no deficits in the ER. Patient pm1 reports no symptoms since left eye blindness at [address] head and neck angio normal except for mild plaquing to bilateral carotid bulbs. Recommended patient to take aspirin daily until follow up with Dr. Tabares in 2-3 days. 08/31 18:51 Order name: Basic Metabolic Panel; Complete Time: 19:53 pm1 08/31 18:51 Order name: CBC with Diff; Complete Time: 20:05 pm1 08/31 18:51 Order name: LFT's; Complete Time: 19:53 pm1 08/31 18:51 Order name: Magnesium; Complete Time: 19:53 pm1 08/31 18:51 Order name: PT-INR; Complete Time: 19:37 pm1 08/31 18:51 Order name: XRAY Chest (1 view); Complete Time: 19:37 pm1 08/31 18:54 Order name: CT Head Angio; Complete Time: 20:33 pm1 08/31 18:54 Order name: CT Neck Angio; Complete Time: 20:33 pm1 08/31 18:56 Order name: CT Head Brain wo Cont; Complete Time: 20:13 pm1 08/31 19:48 Order name: Manual Differential; Complete Time: 20:05 EDMS 08/31 18:51 Order name: EKG; Complete Time: 18:52 pm1 08/31 18:51 Order name: Cardiac monitoring; Complete Time: 19:00 pm1 08/31 18:51 Order name: EKG - Nurse/Tech; Complete Time: 19:28 pm1 08/31 18:51 Order name: IV Saline Lock; Complete Time: 19:01 pm1 08/31 18:51 Order name: Labs collected and sent; Complete Time: 19:28 pm1 08/31 18:51 Order name: O2 Per Protocol; Complete Time: 19:01 pm1 08/31 18:51 Order name: O2 Sat Monitoring; Complete Time: 19:01 pm1 Administered Medications: 21:08 Drug: Aspirin 325 mg Route: PO; emily 21:08 Follow up: Response: Medication administered at discharge. ea Disposition: 09/01 07:18 Co-signature as Attending Physician, Alfredo Jiménez MD. ps1 07:21 Available for consultation at all times. . ps1 Disposition: 08/31/18 20:41 Discharged to Home. Impression: Amaurosis fugax - left eye. - Condition is Stable. - Discharge Instructions: Amaurosis Fugax. - Medication Reconciliation Form, Thank You Letter form. - Follow up: Emergency Department; When: As needed; Reason: Worsening of condition. Follow up: Checo Tabares MD; When: 2 - 3 days; Reason: Recheck today's complaints, Continuance of care, Re-evaluation by your physician. - Problem is new. - Symptoms have improved. Signatures: Dispatcher [employer] EDMS Alia Shelby RN RN iw Get Davila, DOMINIQUE COAL PIPELINE OPERATOR pm1 Camila Canela RN RN jl7 Grace Burden RN RN ea Singer, Phillip, MD MD ps1 Corrections: (The following items were deleted from the chart) 08/31 18:59 18:52 Head Brain Wo Cont+CT.RAD.BRZ ordered. EDMS EDMS 19:43 18:52 Carotid Artery Bilateral+US.RAD.BRZ ordered. EDMS EDMS 19:48 19:41 CBC Smear Scan ordered. EDCT EDMS 21:12 20:41 08/31/2018 20:41 Discharged to Home. Impression: Amaurosis fugax - left eye. ea Condition is Stable. Forms are Medication Reconciliation Form, Thank You Letter, Antibiotic Education, Prescription Opioid Use. Follow up: Emergency Department; When: As needed; Reason: Worsening of condition. Follow up: Checo Tabares; When: 2 - 3 days; Reason: Recheck today's complaints, Continuance of care, Re-evaluation by your physician. Problem is new. Symptoms have improved. pm1 09/01 10:08 08/31 18:33 Allergies: cyclizine; jl7 iw
[2018-08-31] MEDS ORDERED: ASPIRIN 325 MG TAB ONE (21:12)
[2018-08-31] MEDS ORDERED: PROPOFOL 0 MG/0 ML VIAL IV ONE (22:10)
[2018-08-31] MEDS ORDERED: NA CHLORIDE 0.9% 0 ML ONE (22:10)
[2018-08-31] MEDS ORDERED: RSI MEDICATION KIT IV ONE (22:10)
--- NOTE | 2018-09-01 07:02 | EKG ---
Test Date: 2018-08-31 Test Time: 19:27:52 Call Center Support Representative: SKYT MEASUREMENT RESULTS: Intervals: Rate: 59 OR: 176 QRSD: 134 QT: 458 QTc: 453 [place]: P: 44 OR: 176 QRS: 39 T: 216 INTERPRETIVE STATEMENTS: Sinus bradycardia Left bundle branch block Abnormal ECG Compared to ECG 08/04/2018 10:31:51 No significant changes Electronically Signed On 09-01-18 07:01:41 CHANNEL ROUGHER by John Martin
== END 2018-08-31 21:12 | disposition home or self-care (01) ==
LOC: ER 18:18
DX: G45.3 Amaurosis fugax (principal); Z85.72 Personal history of non-Hodgkin lymphomas; Z88.1 Allergy status to other antibiotic agents
CPT/HCPCS: 36415; 70450; 70496; 70498; 71045; 80048; 80076; 83735; 85025; 85610; 93005; 99284; Q9967; J2704; J7030

== ENCOUNTER 2019-07-11 10:19 | Emergency (ER) | payer OTHER ==
[2019-07-11] MEDS ORDERED: ATROPINE SULF 1 MG/10 ML SYR IV ONE (10:59)
[2019-07-11 11:12] LABS: Absolute Lymphocytes (CBC) 3.4 K/uL (0.7-4.9); Basophils % 0.7 % (0-1.3); Hematocrit 33.5 % (36.0-45.0); Lymphocytes % 47.3 % (15.3-44.8); MPV 9.4 fL (7.6-11.3); Protime INR 1.07; RBC Red Blood Cell Count 3.71 M/uL (3.86-4.86)
--- NOTE | 2019-07-11 11:12 | RAD REPORT ---
EXAM DESCRIPTION: Ngozi Single View07/11/2019 11:07 am CLINICAL HISTORY: sob COMPARISON: none FINDINGS: The lungs appear clear of acute infiltrate. The heart is mildly enlarged IMPRESSION: No acute abnormalities displayed
--- NOTE | 2019-07-11 11:33 | EDPHYS ---
Physician Documentation [facility] Name: Karol Beckett Age: 73 yrs Sex: Female : 1945 Arrival Date: 07/11/2019 Time: 10:20 Bed 19 Private MD: ED Physician Gigi Dixon HPI: 07/11 10:37 This 73 yrs old Black Female presents to ER via Unassigned with complaints of Abnormal rn EKG. 10:37 The patient has shortness of breath with light activity. Onset: The symptoms/episode rn began/occurred 1 week(s) ago. Duration: The symptoms are intermittent. The patient's shortness of breath is aggravated by exertion, light activity, walking. Severity of symptoms: At their worst the symptoms were mild in the emergency department the symptoms are unchanged. The patient has not experienced similar symptoms in the past. Reports sob and dizziness for 1 week, worse with exertion and changing position, no trauma, no syncope. Seen by pcp today and sent here after abnormal EKG. No chest pain. No fever/cough. . Historical: - Allergies: 11:01 Clindamycin; iw - Home Meds: 11:01 Azopt 1 % ophthalmic drps 1 drop twice a day [Active]; levothyroxine 100 mcg oral tab iw once daily [Active]; oxybutynin chloride 5 mg Oral tab 1 tab 3 times per day [Active]; Durezol 0.05 % ophthalmic drop 1 drop right eye, MWF [Active]; Combigan 0.2-0.5 % ophthalmic drop 1 drop every 12 hours [Active]; losartan 25 mg oral tab 1 tab once daily [Active]; folic acid 1 mg Oral tab 1 tab once daily [Active]; atorvastatin 40 mg oral tab 1 tab once daily [Active]; aspirin 81 mg Oral TbEC 1 tab once daily [Active]; Calcium with Vitamin D 600 mg(1,500mg) -400 unit oral tab twice a day [Active]; multivitamin oral cap daily [Active]; - PMHx: 11:01 Glaucoma; Non-Hodgkins Lymphoma; staph infection; iw 12:30 Hypothyroidism; Hypertension; ss - Immunization history:: Adult Immunizations up to date. - Family history:: not pertinent. - Ebola Screening: : Patient negative for fever greater than or equal to 101.5 degrees Fahrenheit, and additional compatible Ebola Virus Disease symptoms Patient denies exposure to infectious person Patient denies travel to an Ebola-affected area in the 21 days before illness onset No symptoms or risks identified at this time. - Social history:: Smoking status: Patient/guardian denies using tobacco. - Hospitalizations: : No recent hospitalization is reported. ROS: 10:37 Constitutional: Negative for fever, chills, and weight loss, Eyes: Negative for injury, rn pain, redness, and discharge, Cardiovascular: Negative for chest pain, and edema, Respiratory: Negative for shortness of breath, cough, wheezing, and pleuritic chest pain, Abdomen/GI: Negative for abdominal pain, nausea, vomiting, diarrhea, and constipation, MS/Extremity: Negative for injury and deformity, Skin: Negative for injury, rash, and discoloration, Neuro: Negative for headache, numbness, tingling, and seizure. Exam: 10:37 Constitutional: This is a well developed, well nourished patient who is awake, alert, rn and in no acute distress. Head/Face: Normocephalic, atraumatic. ENT: MMM Cardiovascular: Bradycardic, regular, no murmur Respiratory: No increased work of breathing, no retractions or nasal flaring. Abdomen/GI: soft, non-tender MS/ Extremity: Pulses equal, no cyanosis. Neurovascular intact. Full, normal range of motion. Equal circumference. Neuro: Awake and alert, GCS 15, oriented to person, place, time, and situation. Cranial nerves II-XII grossly intact. Motor strength 5/5 in all extremities. Sensory grossly intact. Cerebellar exam normal. 11:23 ECG was reviewed by the Attending Physician. rn Vital Signs: 11:01 BP 199 / 72; Pulse 32; Resp 16; Temp 98.2; Pulse Ox 100% on R/A; iw 11:19 BP 199 / 75; Pulse 32; Resp 16; Pulse Ox 100% ; Pain 0/10; ss 12:30 BP 197 / 77; Pulse 31; Resp 16; Pulse Ox 100% on R/A; Pain 0/10; ss MDM: 10:28 Patient medically screened. rn 11:19 ED course: NO response to atropine, repeat ecg shows complete heart block, original rn looked like guillermo WEINER, currently asymptomatic, paged cardiology to see if pacemaker placement here possible vs transfer. NO recent changes in medication, and no acute findings in bloodwork. . 11:29 Differential diagnosis: Anemia Anxiety Reaction Myocardial Infarction pulmonary edema, international accountant block, symptomatic bradycardia. Data reviewed: vital signs, nurses notes, lab test result(s), EKG, radiologic studies, plain films, and as a result, I will admit patient. Counseling: I had a detailed discussion with the patient and/or guardian regarding: the historical points, exam findings, and any diagnostic results supporting the discharge/admit diagnosis, lab results, radiology results, the need to transfer to another facility, for higher level of care. Response to treatment: There is no appreciated change of the patient's symptoms at this time. ED course: No response to atropine, still asymptomatic, will transfer to [facility] for cardiology eval and likely pacemaker placement. Dr. Mason states not able to place pacemaker here. . 07/11 10:37 Order name: Basic Metabolic Panel; Complete Time: 11:37 rn 07/11 10:37 Order name: CBC with Diff rn 07/11 10:37 Order name: Magnesium; Complete Time: 11:37 rn 07/11 10:37 Order name: NT PRO-BNP; Complete Time: 11:37 rn 07/11 10:37 Order name: PT-INR; Complete Time: 11:15 rn 07/11 10:37 Order name: Troponin (emerg Dept Use Only); Complete Time: 11:37 rn 07/11 10:37 Order name: XRAY Chest (1 view); Complete Time: 11:15 rn 07/11 10:37 Order name: EKG; Complete Time: 10:38 rn 07/11 10:37 Order name: Cardiac monitoring; Complete Time: 10:58 rn 07/11 10:37 Order name: EKG - Nurse/Tech; Complete Time: 10:58 rn 07/11 10:37 Order name: TSH; Complete Time: 11:37 rn 07/11 10:37 Order name: T4 Free; Complete Time: 11:29 rn 07/11 12:25 Order name: Manual Differential EDFL 07/11 10:37 Order name: IV Saline Lock; Complete Time: 10:58 rn 07/11 10:37 Order name: Labs collected and sent; Complete Time: 10:58 rn 07/11 10:37 Order name: O2 Per Protocol; Complete Time: 10:58 rn 07/11 10:37 Order name: O2 Sat Monitoring; Complete Time: 10:58 rn 07/11 11:20 Order name: NPO; Complete Time: 11:35 rn EC:23 Rate is 31 beats/min. Rhythm is irregular. Left axis deviation noted. QRS is positive rn in lead I and negative in lead aVF. QRS interval is prolonged at 150 msec. QT interval is normal. No Q waves. T waves are Inverted in leads V1, V2, V3, V4, V5, V6. No ST changes noted. Clinical impression: 3rd degree heart block. Interpreted by me. Reviewed by me. Administered Medications: 11:00 Drug: Atropine 0.5 mg Route: IVP; Site: right antecubital; 11:19 Follow up: Response: No adverse reaction; Cardiac rhythm is unchanged ss Disposition: 07/11/19 11:[address] [facility]. Diagnosis are Third degree heart block, Symptomatic bradycardia. - Reason for transfer: Higher level of care. - Accepting physician is Dr. Erazo. - Condition is Stable. - Problem is new. - Symptoms are unchanged. Signatures: Dispatcher [employer] EDAlia Perera RN RN iw Nieto, Roman, MD MD rn Smirch, Shelby, RN RN Corrections: (The following items were deleted from the chart) 11:49 11:32 07/11/2019 11:[address] [facility]. Diagnosis is rn Third degree heart block; Symptomatic bradycardia. Reason for transfer: Higher level of care. Accepting physician is . Condition is Stable. Problem is new. Symptoms are unchanged. rn 13:30 11:49 07/11/2019 11:[address] [facility]. Diagnosis is iw Third degree heart block; Symptomatic bradycardia. Reason for transfer: Higher level of care. Accepting physician is Dr. Erazo. Condition is Stable. Problem is new. Symptoms are unchanged. rn
--- NOTE | 2019-07-11 11:33 | ER ---
Nurse's Notes [facility] Name: Karol Beckett Age: 73 yrs Sex: Female : 1945 Arrival Date: 07/11/2019 Time: 10:20 Bed 19 Private MD: Diagnosis: Third degree heart block;Symptomatic bradycardia Presentation: 07/11 10:51 Presenting complaint: Patient states: was seen at Dr. Valles's office for SOB, light iw headedness on exertion X 1 week, also had abnormal EKG in office. Transition of care: patient was not received from another setting of care. Onset of symptoms was July 11, 2019. Risk Assessment: Do you want to hurt yourself or someone else? Patient reports no desire to harm self or others. Initial Sepsis Screen: Does the patient meet any 2 criteria? No. Patient's initial sepsis screen is negative. Does the patient have a suspected source of infection? No. Patient's initial sepsis screen is negative. Care prior to arrival: None. 10:51 Method Of Arrival: Ambulatory iw 10:51 Acuity: EITAN 2 iw Historical: - Allergies: 11:01 Clindamycin; iw - Home Meds: 11:01 Azopt 1 % ophthalmic drps 1 drop twice a day [Active]; levothyroxine 100 mcg oral tab iw once daily [Active]; oxybutynin chloride 5 mg Oral tab 1 tab 3 times per day [Active]; Durezol 0.05 % ophthalmic drop 1 drop right eye, MWF [Active]; Combigan 0.2-0.5 % ophthalmic drop 1 drop every 12 hours [Active]; losartan 25 mg oral tab 1 tab once daily [Active]; folic acid 1 mg Oral tab 1 tab once daily [Active]; atorvastatin 40 mg oral tab 1 tab once daily [Active]; aspirin 81 mg Oral TbEC 1 tab once daily [Active]; Calcium with Vitamin D 600 mg(1,500mg) -400 unit oral tab twice a day [Active]; multivitamin oral cap daily [Active]; - PMHx: 11:01 Glaucoma; Non-Hodgkins Lymphoma; staph infection; iw 12:30 Hypothyroidism; Hypertension; ss - Immunization history:: Adult Immunizations up to date. - Family history:: not pertinent. - Ebola Screening: : Patient negative for fever greater than or equal to 101.5 degrees Fahrenheit, and additional compatible Ebola Virus Disease symptoms Patient denies exposure to infectious person Patient denies travel to an Ebola-affected area in the 21 days before illness onset No symptoms or risks identified at this time. - Social history:: Smoking status: Patient/guardian denies using tobacco. - Hospitalizations: : No recent hospitalization is reported. Screenin:36 Abuse screen: Denies threats or abuse. Denies injuries from another. Nutritional ss screening: No deficits noted. Tuberculosis screening: Never had TB. Fall Risk None identified. Assessment: 10:30 General: Appears in no apparent distress. comfortable, well groomed, well developed, ss well nourished, Behavior is calm, cooperative. Pain: Denies pain. Neuro: Level of Consciousness is awake, alert, obeys commands, Oriented to person, place, time, situation. Cardiovascular: Capillary refill < 3 seconds is brisk in bilateral fingers Patient's skin is warm and dry. Respiratory: Reports shortness of breath on exertion since x 1 week Respiratory effort is even, unlabored, Respiratory pattern is regular, symmetrical, Breath sounds are clear bilaterally. Denies cough. GI: Patient currently denies diarrhea, nausea, tolerance of food. : No signs and/or symptoms were reported regarding the genitourinary system. EENT: Oral mucosa is moist. Derm: Skin is intact, is healthy with good turgor, Skin is dry, Skin is pink, warm \T\ dry. normal. Musculoskeletal: Circulation, motion, and sensation intact. Range of motion: intact in all extremities, Swelling absent. 11:36 Reassessment: Pt placed on PADS as precaution. Pt verbalizes understanding and is ss updated on plan of care. Pt has no complaints at this time and is making phone calls to her family members. 12:31 Reassessment: report given to TERRY Perdue at [facility]. ss 13:15 Reassessment: Patient appears in no apparent distress at this time. Patient and/or ss family updated on plan of care and expected duration. Pain level reassessed. Patient is alert, oriented x 3, equal unlabored respirations, skin warm/dry/pink. Vital Signs: 11:01 BP 199 / 72; Pulse 32; Resp 16; Temp 98.2; Pulse Ox 100% on R/A; iw 11:19 BP 199 / 75; Pulse 32; Resp 16; Pulse Ox 100% ; Pain 0/10; ss 12:30 BP 197 / 77; Pulse 31; Resp 16; Pulse Ox 100% on R/A; Pain 0/10; ss ED Course: 10:20 Patient arrived in ED. as 10:25 Gigi Dixon MD is Attending Physician. rn 10:35 Patient maintains SpO2 saturation greater than 95% on room air. ss 10:35 Patient has correct armband on for positive identification. Bed in low position. Call ss light in reach. quality assurance monitor body on. Pulse ox on. NIBP on. Warm blanket given. 10:50 Inserted saline lock: 22 gauge in right forearm, using aseptic technique. Blood ss collected. 10:54 Triage completed. iw 10:57 EKG done, by ED staff, reviewed by Gigi Dixon MD. jb1 10:58 Winifred Tony RN is Primary Nurse. ss 11:02 Arm band placed on. iw 11:05 XRAY Chest (1 view) In Process Unspecified. EDMS 11:23 EKG done, by ED staff, reviewed by Gigi Dixon MD. jb1 12:29 No provider procedures requiring assistance completed. Patient did not have IV access ss during this emergency room visit. Administered Medications: 11:00 Drug: Atropine 0.5 mg Route: IVP; Site: right antecubital; ss 11:19 Follow up: Response: No adverse reaction; Cardiac rhythm is unchanged ss Outcome: 10:50 Instructed on the need for transfer. ss 11:32 ER care complete, transfer ordered by . rn 13:30 Patient left the ED. iw 13:30 Transferred by ground EMS to [facility], Transfer form completed. ss 13:30 Condition: stable Signatures: Dispatcher [employer] EDMS Cornelius Mercado jb1 Digna Feng Irene, RN RN iw Gigi Dixon MD MD rn Smirch, Shelby, RN RN ss
[2019-07-11 11:34] LABS: BUN Blood Urea Nitrogen 21 mg/dL (7-18); Bicarbonate 24 mmol/L (21-32); Glucose Level 91 mg/dL (74-106); Magnesium 2.1 mg/dL (1.8-2.4); NT PRO-BNP 941 pg/mL (<125); Potassium 3.7 mmol/L (3.5-5.1); Sodium Level 144 mmol/L (136-145); Troponin (Emerg Dept Use Only) < 0.02 ng/mL (0.0-0.045)
[2019-07-11 12:25] LABS: Anisocytosis 1+; Blood Morphology Comment NOTED (NOT SEEN); Platelet Estimate ADEQ
[2019-07-11 13:40] VITALS: TEMP 98.2; O2SAT 100
[2019-07-11 13:42] VITALS: BP 199/75
--- NOTE | 2019-07-12 08:08 | EKG ---
Test Date: 2019-07-11 Test Time: 10:37:04 Acute Dialysis Nurse: JOSEPH MEASUREMENT RESULTS: Intervals: Rate: 31 [place]: QRSD: 162 QT: 608 QTc: 436 [place]: P: 48 [place]: QRS: -72 T: 43 INTERPRETIVE STATEMENTS: Sinus bradycardia with 2nd degree AV block (Mobitz I) Right bundle branch block Left anterior fascicular block Bifascicular block Voltage criteria for left ventricular hypertrophy Septal infarct, age undetermined Abnormal ECG Compared to ECG 08/31/2018 19:27:52 Right bundle-branch block now present Left anterior fascicular block now present Bifascicular block now present Myocardial infarct finding now present Left bundle-branch block no longer present Electronically Signed On 07-12-19 08:08:08 PRODUCT HANDLER by John Martin
--- NOTE | 2019-07-12 18:37 | EKG ---
Test Date: 2019-07-11 Test Time: 11:06:04 Concrete Pump Operator: JOSEPH MEASUREMENT RESULTS: Intervals: Rate: 31 [place]: QRSD: 150 QT: 592 QTc: 425 [place]: P: 43 [place]: QRS: -63 T: -72 INTERPRETIVE STATEMENTS: Sinus rhythm with complete heart block and Idioventricular rhythm with occasional premature ventricular complexes Left axis deviation Nonspecific intraventricular block Abnormal ECG Compared to ECG 07/11/2019 10:54:13 Ventricular premature complex(es) now present Sinus bradycardia no longer present Myocardial infarct finding no longer present Electronically Signed On 07-12-19 18:37:22 [employer] by John Martin
--- NOTE | 2019-07-12 18:38 | EKG ---
Test Date: 2019-07-11 Test Time: 10:54:13 Cad Technician: JOSEPH MEASUREMENT RESULTS: Intervals: Rate: 30 [place]: QRSD: 146 QT: 598 QTc: 422 [place]: P: 37 [place]: QRS: -62 T: -67 INTERPRETIVE STATEMENTS: Sinus bradycardia with complete heart block and Idioventricular rhythm Left axis deviation Nonspecific intraventricular block Lateral infarct, age undetermined Abnormal ECG Compared to ECG 07/11/2019 10:37:04 AV block, complete (third-degree) now present Left-axis deviation now present Right bundle-branch block no longer present Left anterior fascicular block no longer present Bifascicular block no longer present Left ventricular hypertrophy no longer present Myocardial infarct finding still present Electronically Signed On 07-12-19 18:37:28 CONTACT CENTER ASSISTANT by John Martin
== END 2019-07-11 13:30 | disposition short-term general hospital (02) ==
LOC: ER 10:19
DX: I44.2 Atrioventricular block, complete (principal); R00.1 Bradycardia, unspecified; I10 Essential (primary) hypertension; E03.9 Hypothyroidism, unspecified; Z85.72 Personal history of non-Hodgkin lymphomas; Z88.1 Allergy status to other antibiotic agents
CPT/HCPCS: 36415; 71045; 80048; 83735; 83880; 84439; 84443; 84484; 85025; 85610; 93005; 96374; 99285

== ENCOUNTER 2021-05-11 09:29 | Inpatient (IN) | payer OTHER ==
--- NOTE | 2021-05-11 10:26 | RAD REPORT ---
EXAM DESCRIPTION: CT - [id number] - 05/11/2021 10:04 am CLINICAL HISTORY: Syncope;Pain, fall with head and neck injury COMPARISON: Neck Angio dated 08/31/2018 TECHNIQUE: Axial 5 mm thick images of the head were obtained. Axial 2 mm thick images of the cervic al spine were obtained with sagittal and coronal reconstruction images generated and reviewed. All CT scans are performed using dose optimization technique as appropriate and may include automated exposure control or mA/KV adjustment according to patient size. FINDINGS: No intracranial hemorrhage, mass, edema or acute intracranial finding. No acute cortical b ased infarction identifiable. No cortical edema or sulcal effacement. No measurable atrophy changes a re present. Ventricles are normal. Little if any identifiable chronic ischemic changes. No extra-axia l fluid collections. Mastoid air cells and paranasal sinuses are clear. No globe or orbit abnormality seen. Cervical body height. There is slight retro listhesis of C3 on C4. . Disc space narrowing present C3- C7. Endplate spurring. Mineralization of the C4-5 and C5-6 disc space is noted. No fracture or acute bony abnormality. Disc bulge and endplate spurring at C3-4 present causing significant central spinal stenosis to approximately 6 mm. Approximately 9 mm central spinal stenosis at C4-5. C5-6 is borderli ne stenotic. Central canal detail is inherently limited. No paraspinal mass or hematoma. IMPRESSION: Negative CT head examination for acute or significant finding. Negative CT cervical spine examination for acute finding. Patient has significant spondylosis changes with multilevel central spinal stenosis, significant at C 3-4.
[2021-05-11 10:27] LABS: Absolute Lymphocytes (CBC) 2.3 K/uL (0.7-4.9); Basophils % 0.5 % (0-1.3); Hematocrit 36.4 % (36.0-45.0); Lymphocytes % 27.6 % (15.3-44.8); MPV 7.8 fL (7.6-11.3); RBC Red Blood Cell Count 3.91 M/uL (3.86-4.86)
[2021-05-11 10:29] LABS: Protime INR 1.14
[2021-05-11 10:47] LABS: ALT/SGPT 93 U/L (12-78); AST/SGOT 67 U/L (15-37); Albumin 3.2 g/dL (3.4-5.0); Alkaline Phosphatase 74 U/L (45-117); BUN Blood Urea Nitrogen 31 mg/dL (7-18); Bicarbonate 21 mmol/L (21-32); Bilirubin Direct 0.3 mg/dL (0-0.2); Bilirubin Total 0.8 mg/dL (0.2-1.0); Glucose Level 115 mg/dL (74-106); Magnesium 2.1 mg/dL (1.8-2.4); NT PRO-BNP 70 pg/mL (<125); Protein, Total 7.8 g/dL (6.4-8.2); Sodium Level 138 mmol/L (136-145); Troponin (Emerg Dept Use Only) < 0.02 ng/mL (0.0-0.045)
[2021-05-11] MEDS ORDERED: TETANUS & DIPHTHERIA TOX,ADULT 0.5 ML VIAL ONE (10:53)
[2021-05-11 11:03] LABS: Urine Blood Negative (Negative); Urine Glucose Negative (Negative); Urine Protein Negative (Negative); Urine pH 5.5 (5.0-7.0)
--- NOTE | 2021-05-11 11:11 | RAD REPORT ---
EXAM DESCRIPTION: RAD - Chest Single View - 05/11/2021 10:00 am CLINICAL HISTORY: Syncope COMPARISON: October 30 TECHNIQUE: AP portable chest image was obtained 05/11/2021 10:00 am . FINDINGS: Lungs are clear. Heart and vasculature are normal. No measurable pleural effusion and no p neumothorax. No acute bony abnormality seen. No acute aortic finding. Left subclavian pacemaker remai ns in place. IMPRESSION: No acute cardiopulmonary process. No significant change from comparison study.
[2021-05-11] MEDS ORDERED: LIDOCAINE 1% W/EPI 1:100,000 MDV 20 ML VIAL ONE (11:50)
--- NOTE | 2021-05-11 12:32 | ER ---
Nurse's Notes [facility] Name: Karol Beckett Age: 75 yrs Sex: Female : 1945 Arrival Date: 05/11/2021 Time: 09:30 Bed 15 Private MD: Diagnosis: Acute on chronic renal failure, closed head injury, weakness, dizziness, scalp laceration, hepatic dysfunction, syncope Presentation: 05/11 09:42 Chief complaint: Patient states: i fell last night about 1245 and hit the back of my tw2 head. i must of passed out because when i woke up i was on the floor. and the back of my head was bleeding. Coronavirus screen: At this time, the client does not indicate any symptoms associated with coronavirus-19. Ebola Screen: Patient denies travel to an Ebola-affected area in the 21 days before illness onset. Initial Sepsis Screen: Does the patient meet any 2 criteria? No. Patient's initial sepsis screen is negative. Does the patient have a suspected source of infection? No. Patient's initial sepsis screen is negative. Risk Assessment: Do you want to hurt yourself or someone else? Patient reports no desire to harm self or others. Onset of symptoms was May 11, 2021. 09:42 Method Of Arrival: Wheelchair tw2 09:42 Acuity: EITAN 3 tw2 09:42 Note provider at bedside at this time. tw2 Triage Assessment: 09:44 General: Appears in no apparent distress. slender, well groomed, Behavior is calm, tw2 cooperative, appropriate for age. Pain: Denies pain. Neuro: Reports a syncopal episode. Cardiovascular: Capillary refill < 3 seconds Patient's skin is warm and dry. Respiratory: Airway is patent Respiratory effort is even, unlabored, Respiratory pattern is regular, symmetrical. Musculoskeletal: Circulation, motion, and sensation intact. Range of motion: intact in all extremities. Injury Description: pt reports laceration to the back of the scalp. "it was bleeding somewhere after my shower so i just put a napkin back there". Historical: - Allergies: 09:46 Clindamycin; tw2 - Home Meds: 09:46 aspirin 81 mg Oral TbEC 1 tab once daily [Active]; Azopt 1 % ophthalmic drps 1 drop tw2 twice a day [Active]; Combigan 0.2-0.5 % ophthalmic (eye) drop 1 drop every 12 hours [Active]; folic acid 1 mg Oral tab 1 tab once daily [Active]; lisinopril 2.5 mg Oral tab 1 tab once daily [Active]; levothyroxine 100 mcg tab 1 tab once daily [Active]; oxybutynin chloride 5 mg Oral tab 1 tab 3 times per day [Active]; vitamin d 3 2000 50 mcg 2 pills, daily [Active]; ferrous sulfate 325 mg (65 mg iron) Oral TbEC daily [Active]; Zyrtec 10 mg oral cap [Active]; multivitamin oral cap [Active]; - PMHx: 09:46 CVA; Glaucoma; Hypertension; Hypothyroidism; Non-Hodgkins Lymphoma; staph infection; tw2 - Immunization history:: Client reports receiving the 2nd dose of the Covid vaccine, Last tetanus immunization: > 10 years ago. - Social history:: Smoking status: . Screenin:51 Abuse screen: Denies threats or abuse. Nutritional screening: No deficits noted. tw2 Tuberculosis screening: No symptoms or risk factors identified. Fall Risk None identified. Assessment: 09:51 Reassessment: xray at bedside at this time. tw2 12:02 Reassessment: Patient appears in no apparent distress at this time. No changes from tw2 previously documented assessment. Patient and/or family updated on plan of care and expected duration. Pain level reassessed. Patient is alert, oriented x 3, equal unlabored respirations, skin warm/dry/pink. 12:03 Reassessment: Patient appears in no apparent distress at this time. No changes from tw2 previously documented assessment. Patient and/or family updated on plan of care and expected duration. Pain level reassessed. Patient is alert, oriented x 3, equal unlabored respirations, skin warm/dry/pink. 13:00 Reassessment: Patient appears in no apparent distress at this time. No changes from tw2 previously documented assessment. Patient and/or family updated on plan of care and expected duration. Pain level reassessed. Patient is alert, oriented x 3, equal unlabored respirations, skin warm/dry/pink. 14:00 Reassessment: Patient appears in no apparent distress at this time. No changes from tw2 previously documented assessment. Patient and/or family updated on plan of care and expected duration. Pain level reassessed. Patient is alert, oriented x 3, equal unlabored respirations, skin warm/dry/pink. 15:10 Reassessment: Patient appears in no apparent distress at this time. No changes from tw2 previously documented assessment. Patient and/or family updated on plan of care and expected duration. Pain level reassessed. Patient is alert, oriented x 3, equal unlabored respirations, skin warm/dry/pink. 15:45 Reassessment: Patient appears in no apparent distress at this time. No changes from tw2 previously documented assessment. Patient and/or family updated on plan of care and expected duration. Pain level reassessed. Patient is alert, oriented x 3, equal unlabored respirations, skin warm/dry/pink. Vital Signs: 09:42 BP 121 / 77; Pulse 81; Resp 18; Temp 97.2(TE); Pulse Ox 97% on R/A; Weight 77.56 kg (R);tw2 10:56 BP 90 / 71; Pulse 62; Resp 20; Pulse Ox 99% on R/A; tw2 12:02 BP 117 / 66; Pulse 68; Resp 20; Pulse Ox 98% on R/A; tw2 13:00 BP 115 / 71; Pulse 82; Resp 17; Pulse Ox 98% on R/A; tw2 14:00 BP 128 / 66; Pulse 62; Resp 17; Pulse Ox 100% on R/A; tw2 15:08 BP 140 / 95; Pulse 86; Resp 22; Pulse Ox 95% on R/A; tw2 ED Course: 09:30 Patient arrived in ED. as 09:32 Joel Cintron MD is Attending Physician. kdr 09:33 Placed in gown. Bed in low position. Call light in reach. director records management on. Pulse ox tw2 on. NIBP on. Warm blanket given. 09:42 Juliet Breaux RN is Primary Nurse. tw2 09:44 Triage completed. tw2 09:44 Arm band placed on. tw2 09:45 Inserted saline lock: 20 gauge in right antecubital area, using aseptic technique. tw2 Blood collected. 10:00 XRAY Chest (1 view) In Process Unspecified. EDMS 10:03 CT Head C Spine In Process Unspecified. EDMS 10:40 Straight cath inserted, using sterile technique, 18 Fr. Specimen obtained. scant amount tw2 of urine obtained, TERRY Vitale at bedside. 12:30 Alen Hairston DO is Hospitalizing Provider. kdr 15:44 No provider procedures requiring assistance completed. tw2 15:45 Patient admitted, IV remains in place. tw2 Administered Medications: 10:40 Drug: Tetanus-Diphtheria Toxoid Adult 0.5 ml {Furnace Combination Analyst: [place]. Exp: tw2 11/22/2022. Lot #: [id number]. } Route: IM; Site: right deltoid; 12:40 Follow up: Response: No adverse reaction tw2 11:55 Drug: Lidocaine-Epinephrine -1%: (1:100,000) 20 ml Volume: 20 ml; Route: Infiltration; tw2 Outcome: 12:31 Decision to Hospitalize by Provider. kdr 15:45 Admitted to Med/surg accompanied by tech, via wheelchair, room 231, with chart, Report tw2 called to TERRY Hay 15:45 Condition: stable 15:45 Instructed on the need for admit. 16:41 Patient left the ED. tw2 Signatures: Dispatcher [employer] EDMS Jeol Cintron MD MD kdr Digna Feng Tara, TERRY RN tw2 Corrections: (The following items were deleted from the chart) 09:46 09:42 Chief complaint: Patient states: i fell last night about mindnight and hit the tw2 back of my head. i must of passed out because when i woke up i was on the floor. and the back of my head was bleeding. tw2
--- NOTE | 2021-05-11 12:32 | EDPHYS ---
Physician Documentation [facility] Name: Karol Beckett Age: 75 yrs Sex: Female : 1945 Arrival Date: 05/11/2021 Time: 09:30 Bed 15 Private MD: ED Physician Jeol Cintron HPI: 05/11 09:59 This 75 yrs old Black Female presents to ER via Wheelchair with complaints of Syncope, kdr Laceration To Head, Dizziness. 09:59 The patient has experienced syncope, became unresponsive, collapsed. Onset: The kdr symptoms/episode began/occurred suddenly, this morning, at 00:45. Duration: This was a single episode, that lasted an unknown period of time. Context: the episode(s) was witnessed, by no one, occurred at home, occurred while the patient was Patient had gotten up at 12:45 AM to urinate and passed out.. Just prior to the episode the patient experienced dizziness. Associated injury: Head/face: left occipital area and right occipital area. Associated signs and symptoms: Pertinent positives: dizziness, nausea, Pertinent negatives: abdominal pain, agitation, blurred vision, chest pain, combativeness, confusion, diaphoresis, diarrhea, headache, lightheadedness, numbness, palpitations, not seizure, shortness of breath, tingling, vomiting, weakness. Current symptoms: Slightly dizzy. The patient has not experienced similar symptoms in the past. The patient has not recently seen a physician. Historical: - Allergies: 09:46 Clindamycin; tw2 - Home Meds: 09:46 aspirin 81 mg Oral TbEC 1 tab once daily [Active]; Azopt 1 % ophthalmic drps 1 drop tw2 twice a day [Active]; Combigan 0.2-0.5 % ophthalmic (eye) drop 1 drop every 12 hours [Active]; folic acid 1 mg Oral tab 1 tab once daily [Active]; lisinopril 2.5 mg Oral tab 1 tab once daily [Active]; levothyroxine 100 mcg tab 1 tab once daily [Active]; oxybutynin chloride 5 mg Oral tab 1 tab 3 times per day [Active]; vitamin d 3 2000 50 mcg 2 pills, daily [Active]; ferrous sulfate 325 mg (65 mg iron) Oral TbEC daily [Active]; Zyrtec 10 mg oral cap [Active]; multivitamin oral cap [Active]; - PMHx: 09:46 CVA; Glaucoma; Hypertension; Hypothyroidism; Non-Hodgkins Lymphoma; staph infection; tw2 - Immunization history:: Client reports receiving the 2nd dose of the Covid vaccine, Last tetanus immunization: > 10 years ago. - Social history:: Smoking status: . ROS: 09:59 Constitutional: Negative for fever, chills, and weight loss, Eyes: Negative for injury, kdr pain, redness, and discharge, ENT: Negative for injury, pain, and discharge, Neck: Negative for injury, pain, and swelling, Cardiovascular: Negative for chest pain, palpitations, and edema, Respiratory: Negative for shortness of breath, cough, wheezing, and pleuritic chest pain, Abdomen/GI: Negative for abdominal pain, nausea, vomiting, diarrhea, and constipation, Back: Negative for injury and pain, : Negative for injury, bleeding, discharge, and swelling, MS/Extremity: Negative for injury and deformity, Skin: Negative for injury, rash, and discoloration, Psych: Negative for depression, anxiety, suicide ideation, homicidal ideation, and hallucinations, Allergy/Immunology: Negative for hives, rash, and allergies, Endocrine: Negative for neck swelling, polydipsia, polyuria, polyphagia, and marked weight changes, Hematologic/Lymphatic: Negative for swollen nodes, abnormal bleeding, and unusual bruising. 09:59 Neuro: Positive for dizziness, syncope, Negative for altered mental status, gait disturbance, headache, hearing loss, numbness, seizure activity, tingling, tinnitus, tremor, visual changes, weakness. Exam: 09:59 Constitutional: This is a well developed, well nourished patient who is awake, alert, kdr and in no acute distress. Head/Face: Normocephalic, atraumatic. Eyes: Pupils equal round and reactive to light, extra-ocular motions intact. Lids and lashes normal. Conjunctiva and sclera are non-icteric and not injected. Cornea within normal limits. Periorbital areas with no swelling, redness, or edema. Neck: Trachea midline, no thyromegaly or masses palpated, and no cervical lymphadenopathy. Supple, full range of motion without nuchal rigidity, or vertebral point tenderness. No Meningismus. Chest/axilla: Normal chest wall appearance and motion. Nontender with no deformity. No lesions are appreciated. Cardiovascular: Regular rate and rhythm with a normal S1 and S2. No gallops, murmurs, or rubs. Normal PMI, no JVD. No pulse deficits. Respiratory: Lungs have equal breath sounds bilaterally, clear to auscultation and percussion. No rales, rhonchi or wheezes noted. No increased work of breathing, no retractions or nasal flaring. Abdomen/GI: Soft, non-tender, with normal bowel sounds. No distension or tympany. No guarding or rebound. No evidence of tenderness throughout. Back: No spinal tenderness. No costovertebral tenderness. Full range of motion. Skin: Warm, dry with normal turgor. Normal color with no rashes, no lesions, and no evidence of cellulitis. MS/ Extremity: Pulses equal, no cyanosis. Neurovascular intact. Full, normal range of motion. Neuro: Awake and alert, GCS 15, oriented to person, place, time, and situation. Cranial nerves II-XII grossly intact. Motor strength 5/5 in all extremities. Sensory grossly intact. Cerebellar exam normal. Normal gait. Psych: Awake, alert, with orientation to person, place and time. Behavior, mood, and affect are within normal limits. 10:20 ECG was reviewed by the Attending Physician. kdr Vital Signs: 09:42 BP 121 / 77; Pulse 81; Resp 18; Temp 97.2(TE); Pulse Ox 97% on R/A; Weight 77.56 kg (R);tw2 10:56 BP 90 / 71; Pulse 62; Resp 20; Pulse Ox 99% on R/A; tw2 12:02 BP 117 / 66; Pulse 68; Resp 20; Pulse Ox 98% on R/A; tw2 13:00 BP 115 / 71; Pulse 82; Resp 17; Pulse Ox 98% on R/A; tw2 14:00 BP 128 / 66; Pulse 62; Resp 17; Pulse Ox 100% on R/A; tw2 15:08 BP 140 / 95; Pulse 86; Resp 22; Pulse Ox 95% on R/A; tw2 MDM: 12:31 Patient medically screened. kdr 12:31 Data reviewed: vital signs, nurses notes, lab test result(s), radiologic studies. kdr Counseling: I had a detailed discussion with the patient and/or guardian regarding: the historical points, exam findings, and any diagnostic results supporting the discharge/admit diagnosis, lab results, radiology results, the need for further work-up and treatment in the hospital. Medical screen evaluation completed. EMTALA emergency medical condition absent. Physician consultation: Alen Hairston DO. 05/11 09:34 Order name: Basic Metabolic Panel; Complete Time: 11:54 kdr 05/11 09:34 Order name: CBC with Diff; Complete Time: 11:54 kdr 05/11 09:34 Order name: LFT's; Complete Time: 11:54 kdr 05/11 09:34 Order name: Magnesium; Complete Time: 11:54 kdr 05/11 09:34 Order name: NT PRO-BNP; Complete Time: 11:54 kdr 05/11 09:34 Order name: PT-INR; Complete Time: 11:54 kdr 05/11 09:34 Order name: Troponin (emerg Dept Use Only); Complete Time: 11:54 kdr 05/11 09:34 Order name: XRAY Chest (1 view); Complete Time: 11:54 kdr 05/11 09:34 Order name: EKG; Complete Time: 09:35 kdr 05/11 09:34 Order name: CT Head C Spine; Complete Time: 11:54 kdr 05/11 11:02 Order name: Urine Dipstick-Ancillary; Complete Time: 11:54 EDMS 05/11 12:36 Order name: COVID-19 SARS RT PCR (Document "Date of Onset" if Symptomatic) eb 05/11 09:34 Order name: Cardiac monitoring; Complete Time: 10:55 kdr 05/11 09:34 Order name: EKG - Nurse/Tech; Complete Time: 10:55 kdr 05/11 09:34 Order name: IV Saline Lock; Complete Time: 10:55 kdr 05/11 09:34 Order name: Labs collected and sent; Complete Time: 10:55 kdr 05/11 09:34 Order name: O2 Per Protocol; Complete Time: 09:52 kdr 05/11 09:34 Order name: O2 Sat Monitoring; Complete Time: 09:52 kdr 05/11 09:46 Order name: Misc. Order: Clean and dress head wound ; Complete Time: 10:52 kdr 05/11 10:55 Order name: Straight Cath - Urine; Complete Time: 10:55 tw2 EC:20 Rate is 72 beats/min. Rhythm is regular, Paced with No ectopy. QRS [place] is Normal. kdr Clinical impression: No evidence of ischemia. Administered Medications: 10:40 Drug: Tetanus-Diphtheria Toxoid Adult 0.5 ml {Psychologists: Active-Semi. Exp: 11/22/2022. Lot #: [id number]. } Route: IM; Site: right deltoid; 12:40 Follow up: Response: No adverse reaction tw2 11:55 Drug: Lidocaine-Epinephrine -1%: (1:100,000) 20 ml Volume: 20 ml; Route: Infiltration; tw2 Disposition Summary: 05/11/21 12:31 Hospitalization Ordered Hospitalization Status: Observation kdr Provider: Alen Hairston Location: Telemetry/MedSurg (observation) kdr Condition: Fair kdr Problem: new kdr Symptoms: have improved kdr Bed/Room Type: Standard kdr Room Assignment: 231(05/11/21 15:16) ja1 Diagnosis - Acute on chronic renal failure, closed head injury, weakness, dizziness, scalp kdr laceration, hepatic dysfunction, syncope Forms: - Medication Reconciliation Form kdr - SBAR form kdr Signatures: Dispatcher [employer] EDMS Joel Cintron MD MD kdr Juliet Breaux RN RN tw2 Donal Bhatt RN RN ja1 Corrections: (The following items were deleted from the chart) 15:16 12:31 kdr ja1
--- NOTE | 2021-05-11 12:43 | P.HP ---
Certification for Inpatient Patient admitted to: Observation With expected LOS: <2 Midnights Patient will require the following post-hospital care: None Practitioner: I am a practitioner with admitting privileges, knowledge of patient current condition, hospital course, and medical plan of care. Services: Services provided to patient in accordance with Admission requirements found in Title 42 Section 412.3 of the Code of Federal Regulations Patient History Date of Service: 05/11/21 Primary Care Provider: DOMINIQUE Hinds; Nephrology-Dr. Rocha; Neurology-Dr. Tabares Reason for admission: Syncope History of Present Illness: 35-year-old -[place] female with history of hypertension, chronic renal disease, hypothyroidism, history of TIA, and urinary incontinence. Patient presented to the emergency room after she had a syncopal episode. She reports this occurred whenever she got up to turn on the lights. She reports falling down. Episode lasted for several minutes. She did not realize what it happened initially. She noted a laceration to the back of her head. She came to the ER for further evaluation. Patient denied any palpitations, chest pain, shortness of breath. No recent fever, chills. In the ER patient was evaluated. Blood pressure slightly decreased in the ER. White count 8.4, hemoglobin 12. Sodium 138, potassium 4.0. BUN of 31, creatinine 2.62 with a GFR 22. Glucose 115. Urinalysis unremarkable. Chest x- ray unremarkable. CT head and neck showed no acute changes. Chronic spinal lukasz nosis noted to the C-spine. Total bilirubin normal. AST 67. ALT 93. Troponin unremarkable. Patient was admitted for further evaluation and observation. When I saw the patient in ER, patient back to baseline. Patient reports history of TIA in the past with similar episodes. She reports some fainting spells over the past month. This past week she did visit her PCP. She reports her blood pr essure was low around 95 systolic at that visit. She normally runs around 115- 120 systolic. No recommendations were made at that time. She also reports that she is seen by GI. GI recently stopped her statin medication due to elevated liver function. Allergies No Known Allergies Allergy (Unverified 10/31/12 03:10) Home medications list reviewed: Yes - Past Medical/Surgical History Diabetic: No -: Hypertension -: Chronic renal disease stage III -: Urinary incontinence -: Hypothyroidism -: History of TIA -: Cervical spinal stenosis -: Non-Hodgkin's lymphoma -: Eye surgery -: Cholecystectomy Psychosocial/ Personal History: Patient lives at home - Family History Family History: Reviewed- Non-Contributory - Social History Smoking Status: Never smoker Alcohol use: No CD- Drugs: No Caffeine use: No Place of Residence: Home Review of Systems General: Weakness, As per HPI Eyes: As per HPI ENT: As per HPI Respiratory: Unremarkable Cardiovascular: Light Headedness, As per HPI Gastrointestinal: Unremarkable Genitourinary: Unremarkable Musculoskeletal: Unremarkable Integumentary: Unremarkable Neurological: As per HPI Lymphatics: Unremarkable Physical Examination - Studies Laboratory Data (last 24 hrs) 05/11/21 10:13: PT 13.1 H, INR 1.14 05/11/21 10:13: WBC 8.40, Hgb 12.0, Hct 36.4, Plt Count 218 05/11/21 10:13: Sodium 138, Potassium 4.0, BUN 31 H, Creatinine 2.62 H, Glucose 115 H, Magnesium 2.1, Total Bilirubin 0.8, AST 67 H, ALT 93 H, Alkaline Phosphatase 74 Assessment and Plan - Plan COVID: pending CXR: COMPARISON: October 30 TECHNIQUE: AP portable chest image was obtained 05/11/2021 10:00 am . FINDINGS: Lungs are clear. Heart and vasculature are normal. No measurable pleural effusion and no pneumothorax. No acute bony abnormality seen. No acute aortic finding. Left subclavian pacemaker remains in place. IMPRESSION: No acute cardiopulmonary process. No significant change from comparison study. CT Head/Neck: COMPARISON: Neck Angio dated 08/31/2018 TECHNIQUE: Axial 5 mm thick images of the head were obtained. Axial 2 mm thick images of the cervical spine were obtained with sagittal and coronal reconstruction images generated and reviewed. All CT scans are performed using dose optimization technique as appropriate and may include automated exposure control or mA/KV adjustment according to patient size. FINDINGS: No intracranial hemorrhage, mass, edema or acute intracranial finding. No acute cortical based infarction identifiable. No cortical edema or sulcal effacement. No measurable atrophy changes are present. Ventricles are normal. Little if any identifiable chronic ischemic changes. No extra-axial fluid collections. Mastoid air cells and paranasal sinuses are clear. No globe o r orbit abnormality seen. Cervical body height. There is slight retro listhesis of C3 on C4. . Disc space narrowing present C3-C7. Endplate spurring. Mineralization of the C4-5 and C5-6 disc space is noted. No fracture or acute bony abnormality. Disc bulge and endplate spurring at C3-4 present causing significant central spinal stenosis to approximately 6 mm. Approximately 9 mm central spinal stenosis at C4-5. C5-6 is borderline stenotic. Central canal detail is inherently limited. No paraspinal mass or hematoma. IMPRESSION: Negative CT head examination for acute or significant finding. Negative CT cervical spine examination for acute finding. Patient has significant spondylosis changes with multilevel central spinal stenosis, significant at C3-4. Physical Exam: GENERAL: The patient is a well-developed, well-nourished, in no apparent distress. Alert and oriented x3. VITAL SIGNS: Reviewed HEENT: Laceration to the back of the head has been stapled. No bleeding noted. Extraocular muscles are intact. Pupils are equal, round, and reactive to light and accommodation. Nares appeared normal. Mouth is well hydrated and without lesions. Mucous membranes are moist. NECK: Supple. No carotid bruits. No lymphadenopathy or thyromegaly. LUNGS: Clear to auscultation. No crackles or wheezes are heard. HEART: Regular rate and rhythm, no appreciable gallops, rubs, murmurs or extra heart sounds ABDOMEN: Soft, nontender, and nondistended. Positive bowel sounds. No hepatosplenomegaly was noted. EXTREMITIES: Without any cyanosis, clubbing, rash, lesions or peripheral edema. NEUROLOGIC: The patient is oriented to person, place and time. Strength and sensation are grossly intact. Face is symmetric. SKIN: Normal color, turgor and temperature. No ulcerations or rashes noted. Impression: Syncope likely related to orthostatic hypotension related to medication Acute on chronic renal disease stage III Hypertension with orthostatic hypotension Urinary incontinence Hypothyroidism Elevated liver function related to statin medication History of TIA Spinal stenosis to the C-spine History of non-Hodgkin's lymphoma Plan: Syncope likely related to orthostatic hypotension related to medication: Patient will be admitted for further evaluation and observation. Patient was slightly hypotensive in the emergency room but improved. Will give IV fluid bolus now and continue with IV fluids. Medications reviewed. Will discontinue lisinopril. Will change oxybutynin from 3 times a day to at night. Will monitor closely. Will obtain echocardiogram, carotid Doppler and MRI brain without contrast to further evaluate. Will have physical therapy assess ambulation. Recheck lab in the morning. Electrolyte protocol in place. Fall precautions in place. Anticipate continued improvement. Likely discharge tomorrow if work-up unremarkable. Medication changes will likely need to be co ntinued at discharge. I will turn to service over to the hospitalist team tomorrow. I will go over the plan of care with him. Acute on chronic renal disease stage III: IV fluid bolus given. Continue IV fluids. Recheck lab in the morning. Hold lisinopril. Note changes to oxybutynin. Patient is seen by nephrology as an outpatient. Will consult nephrology for further recommendation. Hypertension with orthostatic hypotension: Continue with above changes. Discontinue lisinopril. Will monitor blood pressure closely. Recheck orthostatics in the morning. Urinary incontinence: Continue with above changes. Decrease oxybutynin from 3 times a day to once a day at bedtime. Hypothyroidism: Continue levothyroxine 100 mcg daily. Elevated liver function related to statin medication: Liver function tests improved from prior lab. Patient reports statin medication discontinued by GI doctor about 3 weeks ago. Recommend to continue to monitor trend as an outpatient. History of TIA: Continue aspirin and folic acid. Patient is seen by neurology as an outpatient. Spinal stenosis to the C-spine: Overall stable. No pain noted at this time. Patient has seen pain management as in the past. History of non-Hodgkin's lymphoma: Follow-up with oncology as an outpatient Code Status: Full Code DVT prophylaxis: Heparin Advanced Care Planning-30 minutes: Anticipate discharge tomorrow if work-up unremarkable. Discharge Plan: Home Plan to discharge in: 24 Hours - Advance Directives Does patient have a Living Will: No Does patient have a Durable POA for Healthcare: No - Code Status/Comfort Care Code Status Assessed: Yes (Full code) Time Spent Managing Pts Care (In Minutes): 55
[2021-05-11] MEDS ORDERED: NA CHLORIDE 0.9% 500 ML IV ONE (16:12)
[2021-05-11] MEDS ORDERED: ONDANSETRON 4 MG/2 ML VIAL IV PRN (16:12)
[2021-05-11] MEDS ORDERED: ACETAMINOPHEN 500 MG TAB PO PRN (16:12)
[2021-05-11 17:56] LABS: Creatine Phosphokinase 85 U/L (26-192); Troponin I < 0.02 ng/mL (0.0-0.045)
[2021-05-11 17:59] LABS: CKMB Creatine Kinase MB < 1.0 ng/mL (1.0-3.6)
[2021-05-11] MEDS: NA CHLORIDE 0.9% 1,000 ML IV SCH (18:12)
[2021-05-11] MEDS ORDERED: OXYBUTYNIN CHLORIDE 5 MG TAB PO SCH (21:00)
[2021-05-11] MEDS: HEPARIN 5000 UNIT/ML 1 ML VIAL SQ SCH (21:10)
--- NOTE | 2021-05-11 21:41 | RAD REPORT ---
EXAM DESCRIPTION: USCarotid Artery Bjnskvnhu42/31/2021 9:07 pm CLINICAL HISTORY: syncope COMPARISON: None FINDINGS: The velocity of the right internal carotid artery equals 109 cm/sec. The right ICA/CCA rat io 1.3 The velocity of the left internal carotid artery equals 97 cm/sec. The left ICA/CCA ratio 1. Mild plaque is present within the carotid arteries. The vertebral arteries demonstrate antegrade flow IMPRESSION: Mild plaque within the carotid arteries without evidence of a hemodynamically significan t stenosis NASCET criteria used. Mild 0-49% stenosis Moderate 50-69% stenosis Severe 70-99% stenosis
[2021-05-11 22:31] LABS: Creatine Phosphokinase 86 U/L (26-192)
[2021-05-11 22:34] LABS: CKMB Creatine Kinase MB < 1.0 ng/mL (1.0-3.6)
[2021-05-12 00:29] LABS: Urine Protein/Creatinine Ratio 0.11 ratio (<0.15)
[2021-05-12] MEDS: NA CHLORIDE 0.9% 1,000 ML IV SCH ×4 (02:12→22:12)
[2021-05-12 04:29] LABS: Absolute Lymphocytes (CBC) 3.1 K/uL (0.7-4.9); Basophils % 0.4 % (0-1.3); Hematocrit 31.5 % (36.0-45.0); Lymphocytes % 36.4 % (15.3-44.8); MPV 7.7 fL (7.6-11.3); RBC Red Blood Cell Count 3.36 M/uL (3.86-4.86)
[2021-05-12 04:53] LABS: Albumin 2.7 g/dL (3.4-5.0); Bilirubin Total 0.7 mg/dL (0.2-1.0); Magnesium 2.1 mg/dL (1.8-2.4); Potassium 3.9 mmol/L (3.5-5.1); Protein, Total 6.7 g/dL (6.4-8.2); Thyroid Stimulating Hormone 1.62 uIU/mL (0.360-3.740)
[2021-05-12] MEDS ORDERED: POTASSIUM CL SA 10 MEQ TAB PO ONE (06:00)
[2021-05-12] MEDS: LEVOTHYROXINE SOD 0.1 MG TAB PO SCH (06:02)
[2021-05-12] MEDS: FOLIC ACID 1 MG TABLET PO SCH (09:59)
[2021-05-12] MEDS: ASPIRIN EC 81 MG TAB PO SCH (09:59)
[2021-05-12] MEDS: CETIRIZINE HCL 5 MG TABLET PO SCH (09:59)
[2021-05-12] MEDS: LACTOBACILLUS/ACIDOPHILUS TAB PO SCH (09:59)
[2021-05-12] MEDS: HEPARIN 5000 UNIT/ML 1 ML VIAL SQ SCH ×2 (09:59→20:21)
[2021-05-12] MEDS: MULTIVITAMIN TAB PO SCH (09:59)
--- NOTE | 2021-05-12 14:46 | ECHO ---
HEIGHT: 5 ft 8 in WEIGHT: 171 lb 8 oz DATE OF STUDY: 05/12/[address]: Alen Hairston DO 2-DIMENSIONAL: YES M.MODE: YES DOPPLER: YES COLOR FLOW: YES TDS: NO PORTABLE: NO DEFINITY: NO BUBBLE STUDY: NO DIAGNOSIS: SYNCOPE CARDIAC HISTORY: CATHERIZATION: SURGERY: PROSTHETIC VALVE: PACEMAKER: MEASUREMENTS (cm) DIASTOLIC (NORMALS) SYSTOLIC (NORMALS) IVSd 0.8 (0.6-1.2) LA Diam (1.9-4.0) LVEF 50% LVIDd 4.7 (3.5-5.7) LVIDs 3.5 (2.0-3.5) %FS 25% LVPWd 1.0 (0.6-1.2) Ao Diam 3.0 (2.0-3.7) 2 DIMENSIONAL ASSESSMENT: RIGHT ATRIUM: NORMAL LEFT ATRIUM: NORMAL RIGHT VENTRICLE: NORMAL LEFT VENTRICLE: NORMAL TRICUSPID VALVE: MITRAL VALVE: NORMAL PULMONIC VALVE: NORMAL AORTIC VALVE: NORMAL PERICARDIAL EFFUSION: NONE AORTIC ROOT: NORMAL LEFT VENTRICULAR WALL MOTION: NORMAL DOPPLER/COLOR FLOW: SEE BELOW/ COMMENTS: NORMAL LEFT VENTRICULAR EJECTION FRACTION 55-60%. NORMAL WALL MOTION. MILD TRICUSPID REGURGITATION. TECHNOLOGIST: Varinder MCCOY
[2021-05-12 17:52] VITALS: BMI 25.9
--- NOTE | 2021-05-12 18:05 | P.PN ---
Subjective Date of Service: 05/12/21 Spoke to ; patient's baseline Cr is 0.7 and GFR>90; currently admitted with Cr. of 2.62 and GFR of 22. Currently Cr. improved to 1.7 and GFR of 30s. Nephrology wants to continue with IVFs and repeat labs in the am. Patient with ? arrhythmia on the application security consultant. Syncope work-up so far unremarkable except for severe dehydration on arrival. Patient remains orthostatic with BP of 130/70 on laying and 90/60 on standing; patient was light-headed as well. Change to inpatient and continue with hydration and repeat labs in the AM Review of Systems 10-point ROS is otherwise unremarkable Physical Examination - Vital Signs Temperature: 98.5 F Blood Pressure: 137/80 Pulse: 68 Respirations: 18 Pulse Ox (%): 99 - Physical Exam General: Alert, In no apparent distress, Oriented x3 Respiratory: Clear to auscultation bilaterally, Normal air movement Cardiovascular: Regular rate/rhythm, Normal S1 S2, No murmurs Gastrointestinal: Normal bowel sounds, Soft and benign, Non-distended, No tenderness Musculoskeletal: No clubbing, No swelling, No tenderness Neurological: Sensation intact, Cranial nerves 3-12 intact - Studies Medications List Reviewed: Yes Assessment & Plan - Problems (Diagnosis) (1) Orthostatic hypotension Current Visit: Yes Status: Acute (2) ABAD (acute kidney injury) Current Visit: Yes Status: Acute (3) Dehydration Current Visit: Yes Status: Acute (4) Syncope and collapse Current Visit: Yes Status: Acute - Advance Directives Does patient have a Living Will: No Does patient have a Durable POA for Healthcare: No
--- NOTE | 2021-05-12 20:55 | CON ---
History Of Present Illness: The patient is a 75-year-old woman with history of chronic kidney diseas e stage 3A. She came to the hospital because of dizziness, generalized weakness. She was found to h ave acute kidney injury. Lab work the hospital showed of BUN 31, creatinine 2.62, sodium 158, potassium 4.0, glucose 116. Urinalysis was unremarkable. The patient was started on IV fluids. SHER inhibitor is on hold. She has multiple medical problems including history of chronic kidney di sease stage 3A, hypothyroidism, history of TIA, urinary incontinence. She presented to emergency luna m after she had a syncopal episode at home. She has orthostatic hypotension as well. She reports di zziness and lightheaded and she has history of recent multiple falls. The last episode of syncope ap parently was prolonged up to several minutes. She did not realize what is happening initially and bl ood pressure was not checked at that time. She noted also laceration to the back of the head. Larisa p was started in the emergency room for head trauma. She denied palpitation, chest pain, shortness o f breath. She did not have fever or chills. She did not have any diarrhea, nausea, vomiting, melena . Blood pressure in the emergency room showed borderline hypotension. White count 8.4, hemoglobin 1 2, sodium 148, potassium 4.0, BUN 31, creatinine 2.62, glucose 115. Chest x-ray was unremarkable. C T scan of neck and head showed no acute changes. Chronic spinal stenosis although was noted to the C -spine. AST was 67, ALT was 93, and troponin was unremarkable. The patient is admitted to the floor and is undergoing workup for altered mental status and syncope. Past Medical History: Hypertension, chronic renal disease stage 3A, urinary incontinence, hypothyroi dism, history of transient ischemic attack, cervical spine stenosis, non-Hodgkin lymphoma, eye surger y, cholecystectomy. Family History: No kidney disease in the family. Social History: Denies tobacco, alcohol or illicit drugs. Review of Systems: Complains of generalized weakness and dizziness upon standing. Respiratory: Denies wheezing, cough, shortness of breath. Gastrointestinal: Denies nausea, vomiting, melena. : Denies dysuria, hematuria, although she has urinary incontinence. Musculoskeletal: Denies muscle aches or joint swelling. All other systems reviewed and all are negative. Physical Examination: General: The patient is awake, alert, follows commands. Eyes: Anicteric sclerae. EOMI. Ear, Nose, Mouth and throat: Oral mucosa moist. No pallor. Neck: Supple. No bruits. Lungs: Diminished breath sounds at bases. Heart: S1, S2. Abdomen: Soft, benign. Extremities: No edema. Laboratory Data: Sodium 138, potassium 4.0, BUN 31, creatinine 2.62, glucose 118, magnesium 2.1, WBC 8.4, platelet count 218. Impression And Plan: 1.Acute on chronic kidney injury, nonoliguric. The patient was taken out of Sher inhibitor to preven t renal hypoperfusion. Continue IV fluid for volume control. Apparently the patient has some hypovo lemia during this admission and was also hypotensive. Avoid nonsteroidal anti-inflammatory medicatio n. 2.Syncope likely related to idiopathic hypotension and this may be triggered by medication. Plan is to review home blood pressure medication. 3.Urinary incontinence, the patient will be wean off oxybutynin. 4.History of spinal stenosis, workup per primary team. 5.The patient has history of multiple medical problems. Recommend to check Doppler of carotid and M RI of the brain without gadolinium contrast. 6.Continue IV fluids and review medication to adjust treatment in order to prevent orthostatic hypotension and recommend also to check thyroid panel and cortisol level . RAH/LEON Voice ID: [id number] Report ID: [id number]
[2021-05-12] MEDS ORDERED: OXYBUTYNIN ER 5 MG TAB PO SCH (21:00)
[2021-05-13] MEDS: LEVOTHYROXINE SOD 0.1 MG TAB PO SCH (05:40)
[2021-05-13 06:32] LABS: Magnesium 1.9 mg/dL (1.8-2.4)
--- NOTE | 2021-05-13 07:32 | RAD REPORT ---
EXAM DESCRIPTION: US - Renal Ultrasound-Complete - 05/13/2021 1:38 am CLINICAL HISTORY: rocky on ckd 3a COMPARISON: Abdomen Exam Complete dated 09/28/2020 FINDINGS: The right kidney measures 11.8 cm. Simple appearing right renal cysts, the largest measuring 2.3 Cm. Increased echogenicity of the renal cortices. The left kidney measures 10.7 cm. Several renal cysts noted, the largest measuring 3 cm. Increased ec hogenicity of the renal cortices. The urinary bladder is incompletely distended without gross abnormality seen. IMPRESSION: Increased echogenicity of the renal cortices consistent with medical renal disease. Bila teral renal cysts.
[2021-05-13] MEDS: NA CHLORIDE 0.9% 1,000 ML IV SCH (08:12)
[2021-05-13 08:43] VITALS: O2SAT 96
[2021-05-13] MEDS: HEPARIN 5000 UNIT/ML 1 ML VIAL SQ SCH (09:45)
[2021-05-13] MEDS: FOLIC ACID 1 MG TABLET PO SCH (09:45)
[2021-05-13] MEDS: ASPIRIN EC 81 MG TAB PO SCH (09:45)
[2021-05-13] MEDS: MULTIVITAMIN TAB PO SCH (09:45)
[2021-05-13] MEDS: CETIRIZINE HCL 5 MG TABLET PO SCH (09:46)
[2021-05-13] MEDS: LACTOBACILLUS/ACIDOPHILUS TAB PO SCH (09:46)
--- NOTE | 2021-05-13 14:56 | PN ---
Date of Progress Note: 05/13/2021 Subjective: The patient was admitted with acute kidney injury secondary to prerenal. The patient's after hydration kidney function has been improved significantly. Her acute kidney injury was prerena l, superimposed with EDI inhibitor and urine incontinence. Physical Examination: Vital Signs: When I saw the patient; blood pressure 135/74, pulse of 68, afebrile. The patient had good urine output. Chest: Clear to auscultation. Heart: S1, S2. Regular. Abdomen: Soft, nontender. Extremity: No edema. Neurologic: Alert. No focality. Laboratory Data: WBC 8.6, H and H 10.5/31.5. Sodium 142, potassium 4, bicarb 21, BUN 14, creatinine 1.2, calcium 8.5, magnesium 1.9, albumin 2.7. Cortisol is 16. TSH 1.6. Current Medications: The patient on include IV fluid, cetrizine, aspirin, Tylenol, Zofran, levothyro xine, normal saline, oxybutynin, multivitamin. Assessment And Plan: 1.Acute kidney injury, normal-sized kidney, 11.8 x 10.7 on chronic kidney disease secondary to prere nal, dehydration, superimposed with EDI inhibitor. Kidney function back to close to normalized. GFR of 53. We will discontinue IV fluid. We will monitor. Keep holding EDI inhibitor for the time reyna ng. 2.Hypertension with the presence of acute kidney injury. Keep holding EDI inhibitor. 3.Multiple cysts, bilateral, simple. Needs monitoring as outpatient. 4.Dehydration secondary to poor intake, recovered, resolved. 5.Hypokalemia, status post supplement. The patient cleared from the Renal standpoint for discharge planning to follow up in the office in 2-3 weeks. WALTER/LEON Voice ID: [id number] Report ID: [id number]
[2021-05-13 17:03] VITALS: BP 177/84; TEMP 96.8
== END 2021-05-13 17:18 | disposition home or self-care (01) | DRG 312 ==
LOC: ER 09:29 → OBSVTOIN 12:27 → INTOOBSV 12:27 → ERHOLD 12:27 → 2ND 15:45 → OBSVTOIN 05-12 18:06 → INTOOBSV 05-12 18:06
PROVIDERS: ADMIT Family Medicine; ATTEND Hospitalist
DX: I95.2 Hypotension due to drugs (principal); N17.9 Acute kidney failure, unspecified; E03.9 Hypothyroidism, unspecified; S01.01XA Laceration without foreign body of scalp, initial encounter; I12.9 Hypertensive chronic kidney disease with stage 1 through stage 4 chronic kidney disease, or unspecified chronic kidney disease; N18.30 Chronic kidney disease, stage 3 unspecified; M48.00 Spinal stenosis, site unspecified; E86.0 Dehydration; E86.1 Hypovolemia; E87.6 Hypokalemia; T50.995A Adverse effect of other drugs, medicaments and biological substances, initial encounter; R32 Unspecified urinary incontinence; R94.5 Abnormal results of liver function studies; W18.30XA Fall on same level, unspecified, initial encounter; Z79.82 Long term (current) use of aspirin; Z90.49 Acquired absence of other specified parts of digestive tract; Z91.81 History of falling; Z86.73 Personal history of transient ischemic attack (TIA), and cerebral infarction without residual deficits; Z79.890 Hormone replacement therapy; Z79.899 Other long term (current) drug therapy; Z88.1 Allergy status to other antibiotic agents; Z20.822 Contact with and (suspected) exposure to COVID-19
CPT/HCPCS: 36415; 51702; 70450; 71045; 72125; 76770; 80048; 80053; 80061; 80076; 81003; 82533; 82550; 82553; 82570; 83735; 83880; 83935; 84132; 84156; 84300; 84439; 84443; 84484; 85025; 85610; 90471; 90714; 93005; 93306; 93880; 97116; 97161; 97530; 99285; J1644; J7030; J7040; U0003

== ENCOUNTER 2021-05-18 09:58 | Emergency (ER) | payer OTHER ==
--- NOTE | 2021-05-18 10:09 | ER ---
Nurse's Notes [facility] Name: Karol Beckett Age: 75 yrs Sex: Female : 1945 Arrival Date: 05/18/2021 Time: 10:01 Bed Waiting Private MD: Diagnosis: Encounter for removal of sutures-nettie Presentation: 05/18 10:04 Chief complaint: Patient states: Im here to get my nettie out if they are ready. tw2 Coronavirus screen: At this time, the client does not indicate any symptoms associated with coronavirus-19. Ebola Screen: Patient denies travel to an Ebola-affected area in the 21 days before illness onset. Initial Sepsis Screen: Does the patient meet any 2 criteria? No. Patient's initial sepsis screen is negative. Does the patient have a suspected source of infection? No. Patient's initial sepsis screen is negative. Risk Assessment: Do you want to hurt yourself or someone else? Patient reports no desire to harm self or others. Onset of symptoms was May 18, 2021. 10:04 Method Of Arrival: Ambulatory tw2 10:04 Acuity: EITAN 5 tw2 10:05 Note provider Caroline Anand NP in triage room at this time removing nettie. tw2 Triage Assessment: 10:08 General: Appears in no apparent distress. Behavior is calm, cooperative, appropriate tw2 for age. Pain: Denies pain. Neuro: Level of Consciousness is awake, alert, obeys commands, Oriented to person, place, time, situation. Respiratory: Airway is patent Respiratory effort is even, unlabored, Respiratory pattern is regular, agonal. Musculoskeletal: Range of motion: intact in all extremities. Historical: - Allergies: 10: Clindamycin; tw2 - Home Meds: 10: Zyrtec 10 mg Oral cap [Active]; vitamin d 3 2000 50 mcg 2 pills, daily [Active]; tw2 oxybutynin chloride 5 mg Oral tab 1 tab 3 times per day [Active]; levothyroxine 100 mcg tab 1 tab once daily [Active]; folic acid 1 mg Oral tab 1 tab once daily [Active]; lisinopril 2.5 mg Oral tab 1 tab once daily [Active]; ferrous sulfate 325 mg (65 mg iron) Oral TbEC daily [Active]; aspirin 81 mg Oral TbEC 1 tab once daily [Active]; Azopt 1 % ophthalmic drps 1 drop twice a day [Active]; - PMHx: 10:07 CVA; Hypothyroidism; Glaucoma; Non-Hodgkins Lymphoma; Hypertension; staph infection; tw2 - Immunization history:: Adult Immunizations. - Social history:: Smoking status: . Screenin:08 Abuse screen: Denies threats or abuse. Nutritional screening: No deficits noted. tw2 Tuberculosis screening: No symptoms or risk factors identified. Fall Risk None identified. Assessment: 10:09 Reassessment: Patient appears in no apparent distress at this time. No changes from tw2 previously documented assessment. Vital Signs: 10:04 BP 153 / 97; Pulse 82; Resp 17; Temp 97.6(TE); Pulse Ox 99% on R/A; tw2 ED Course: 10:01 Patient arrived in ED. mr 10:03 [facility]. kb 10:03 Moises Garcia MD is Attending Physician. kb 10:04 pt seated in triage exam room. tw2 10:06 Triage completed. tw2 10:08 Arm band placed on. tw2 10:09 No provider procedures requiring assistance completed. Patient did not have IV access tw2 during this emergency room visit. Administered Medications: No medications were administered Outcome: 10:08 Discharge ordered by . kb 10:09 Discharged to home ambulatory. tw2 10:09 Condition: stable 10:09 Discharge instructions given to patient, Instructed on discharge instructions, follow up and referral plans. Demonstrated understanding of instructions, follow-up care. 10:10 Patient left the ED. tw2 Signatures: Caroline Anand FNP-C FNP-Ckb Rivera, Mary Juliet Breaux, RN RN tw2 Corrections: (The following items were deleted from the chart) 10:08 10:05 Note provider Caroline Anand NP at bedside at this time removing nettie at tw2 this time. tw2
--- NOTE | 2021-05-18 10:09 | EDPHYS ---
Physician Documentation [facility] Name: Karol Beckett Age: 75 yrs Sex: Female : 1945 Arrival Date: 05/18/2021 Time: 10:01 Bed Waiting Private MD: ED Physician Moises Garcia HPI: 05/18 10:53 This 75 yrs old Black Female presents to ER via Ambulatory with complaints of Staple kb Removal. 10:53 The patient has nettie on the scalp. Previous treatment: The patient was initially kb treated on May 11, 2021, the care was rendered at [facility], Treatment type: The patient's original treatment included nettie, Outpatient prescription(s): The patient was given prescription(s) for nothing. Sutures/nettie progress: The patient has no c/o's. The wound is well-healing with no redness, swelling, discharge, or dehiscence reported. The patient has not experienced similar symptoms in the past. The patient has not recently seen a physician. Historical: - Allergies: 10:07 Clindamycin; tw2 - Home Meds: 10:07 Zyrtec 10 mg Oral cap [Active]; vitamin d 3 2000 50 mcg 2 pills, daily [Active]; tw2 oxybutynin chloride 5 mg Oral tab 1 tab 3 times per day [Active]; levothyroxine 100 mcg tab 1 tab once daily [Active]; folic acid 1 mg Oral tab 1 tab once daily [Active]; lisinopril 2.5 mg Oral tab 1 tab once daily [Active]; ferrous sulfate 325 mg (65 mg iron) Oral TbEC daily [Active]; aspirin 81 mg Oral TbEC 1 tab once daily [Active]; Azopt 1 % ophthalmic drps 1 drop twice a day [Active]; - PMHx: 10:07 CVA; Hypothyroidism; Glaucoma; Non-Hodgkins Lymphoma; Hypertension; staph infection; tw2 - Immunization history:: Adult Immunizations. - Social history:: Smoking status: . ROS: 10:52 Constitutional: Negative for fever, chills, and weight loss. kb 10:52 Skin: Positive for laceration(s), of the scalp, nettie in place. 10:52 All other systems are negative. Exam: 10:54 Constitutional: This is a well developed, well nourished patient who is awake, alert, kb and in no acute distress. Head/Face: Normocephalic, atraumatic. ENT: Moist Mucous membranes Respiratory: Respirations even and unlabored. No increased work of breathing, no retractions or nasal flaring. MS/ Extremity: Pulses equal, no cyanosis. Neurovascular intact. Full, normal range of motion. Neuro: Awake and alert, GCS 15, oriented to person, place, time, and situation. Moves all extremities. Normal gait. Psych: Awake, alert, with orientation to person, place and time. Behavior, mood, and affect are within normal limits. 10:54 Skin: Wound recheck: Staple laceration closure: the wound is healing well, the edges are well approximated, no evidence of dehiscence, no drainage, no erythema, no swelling. Vital Signs: 10:04 BP 153 / 97; Pulse 82; Resp 17; Temp 97.6(TE); Pulse Ox 99% on R/A; tw2 Procedures: 10:54 Suture/Staple removal: Removed 3 nettie, from scalp, site appears well healed, Patient kb tolerated well. MDM: 10:08 Patient medically screened. kb 10:52 Data reviewed: vital signs, nurses notes. Data interpreted: Pulse oximetry: on room air kb is 99 %. Interpretation: normal. Counseling: I had a detailed discussion with the patient and/or guardian regarding: the historical points, exam findings, and any diagnostic results supporting the discharge/admit diagnosis, the need for outpatient follow up, a family practitioner, to return to the emergency department if symptoms worsen or persist or if there are any questions or concerns that arise at home. Administered Medications: No medications were administered Disposition Summary: 05/18/21 10:08 Discharge Ordered Location: Home kb Condition: Stable kb Diagnosis - Encounter for removal of sutures - nettie kb Followup: kb - With: Emergency Department - When: As needed - Reason: Worsening of condition Followup: kb - With: Private Physician - When: 2 - 3 days - Reason: Recheck today's complaints, Continuance of care, Re-evaluation by your physician Discharge Instructions: - Discharge Summary Sheet kb - Suture Removal, Care After kb Forms: - Medication Reconciliation Form kb - Thank You Letter kb - Antibiotic Education kb - Prescription Opioid Use kb Addendum: 05/20/2021 08:34 Co-signature as Attending Physician, Moises Garcia MD I agree with the assessment and s p3 plan of care. Signatures: Caroline Anand FNP-C JOANNA-Juliet Padron, RN RN tw2 Moises Garcia MD MD sp3
[2021-05-18 10:41] VITALS: BP 153/97; TEMP 97.6; O2SAT 99
--- OUTSIDE RECORDS SUMMARY | 2021-05-24 15:04 | XMS REPORT | Continuity of Care Document ---
:1945 Author Organization [facility] t Address [address] [place] [address] [address]. [address] [place] [address] Care Team Providers Name Role Phone FISH Attending Clinician Unavailable Doctor Unassigned, Name Attending Clinician Unavailable Angelina DOS SANTOS Attending Clinician Unavailable Robert BANGURA Admitting Clinician Unavailable Payers Payer Name Policy Type Policy Number Effective Date Expiration Date S renay [employer] MEDICARE ADV [id number] 2020 00:00:00 Problems This patient has no known problems. Allergies, Adverse Reactions, Alerts Allergy Allergy Status Severity Reaction(s) Onset Inactive Treating Comm ents Source Name Type Date Date Clinician CLINDAMY DRUG Active High Rash 2018- Univers HELEN INGREDI 2-31 ity of 00:00: [address] Clindamy Drug Active Rash 2018- Univers helen Allergy 2-31 ity of 00:00: [address] NO KNOWN Drug Active Univers ALLERGIE Class ity of S [facility] Social History Social Habit Start Date Stop Date Quantity Comments Source Alcohol intake 2020-07-31 2020-07-31 Current drinker Unive rsity of 00:00:00 00:00:00 of alcohol [place] [facility] (finding) [facility] History SDOH 2020-07-31 2020-07-31 99 University o f Alcohol Frequency 00:00:00 00:00:00 [place] [facility] History SDCA 2020-07-31 2020-07-31 1 University o f Alcohol Std 00:00:00 00:00:00 [place] [facility] Drinks [facility] History [facility] 2020-07-31 2020-07-31 99 University o f Alcohol Binge 00:00:00 00:00:00 [place] [facility] Tobacco use and 2020-07-31 2020-07-31 Never used Universit y of exposure 00:00:00 00:00:00 [facility] Sex Ass[birth year] At [birth year] [facility] y of 00:00:00 00:00:00 [facility] Smoking Status Start Date Stop Date Source Unknown if ever smoked [facility] Never smoker [facility] Medications Ordered Filled Start Stop Current Ordering Indication Dosage Frequency Signature Comments Components Source Medication Medication Date Date Medication? Clinician (SIG) Name Name aspirin 81 Yes 81mg Take 81 mg U nivers mg EC 1-20 by mouth. ity of tablet 19:58: [address] brinzolamid Yes 1[drp] 1 Drop. U nivers e 1 % 1-20 ity of ophthalmic 19:58: [place] suspension Medical drops Branch foLIC acid Yes 1mg Take 1 mg Un lefty 1 mg tablet 1-20 by mouth. ity of 19:58: [address] multivitami Yes 1{tbl} Take 1 Un lefty n tablet 1-20 tablet by ity of 19:58: mouth. [address] levothyroxi Yes 100ug Take 100 U nivers ne 100 mcg 1-20 mcg by ity of tablet 19:58: mouth. [address] Yes Place in U nivers te 1-20 each eye. ity of (DUREZOL) 19:58: [place] 0.05 % Drop [address] [place] [address] in U nivers -Timolol 1-20 each eye. ity of (COMBIGAN) 19:58: [place] 0.2-0.5 % [address] [place] [address] ophthalmic Branch drops mirabegron Yes Take by Uni vers (MYRBETRIQ) 1-20 mouth. ity of 50 mg 19:58: [place] tablet [address] [place] [address] Branch Lactobacill Yes Take by Un lefty us 1-20 mouth. ity of acidophilus 19:58: [place] (PROBIOTIC Medical ORAL) Branch BIOTIN ORAL Yes Take by Un lefty 1-20 mouth. ity of 19:58: [address] Branch psyllium Yes Take by Unive rs seed, with 1-20 mouth. ity of dextrose, 19:58: [place] (FIBER 49 Medical ORAL) [place] docusate Yes Take by Unive rs sodium 1-20 mouth. ity of (STOOL 19:58: [place] SOFTENER 49 Medical ORAL) [place] atorvastati 2019-07 Yes 40mg Take 40 mg Univers n 40 mg 1-14 by mouth ity of tablet 00:00: at [place] 00 bedtime. [facility] Procedures Procedure Date / Time Performing Clinician Source Performed PATIENT QUESTIONNAIRE 2020-12-13 05:01:00 Doctor Unassigned, No [facility] ASSIGNMENT OF BENEFITS 2020-07-31 19:34:11 Doctor Unassigned, No [facility] Encounters Start End Encounter Admission Attending Care Care Encounter Source Date/Time Date/Time Type Type Clinicians Facility Department ID 2021-04-28 2021-04-28 Outpatient [facility] [id number] Univers 09:00:00 09:00:00 [id number] ity [facility] 2021-04-28 2021-04-28 Outpatient [facility] [id number] Univers 09:00:00 09:00:00 ity [facility] 2020-12-13 2020-12-13 Orders Doctor ANDERSON [id number] Univers 00:00:00 00:00:00 Only Unassigned, CRISTOBAL [id number] [facility] [id number] Jose Roberto as [phone] [address] 2020-08-17 2020-08-17 Outpatient [facility] [id number] Univers 08:30:00 08:30:00 [id number] ity [facility] 2020-08-17 2020-08-17 Outpatient [facility] [id number] Univers 08:30:00 08:30:00 ity [facility] 2020-08-01 2020-08-01 Outpatient [facility] [id number] Univers 14:00:00 14:00:00 ity [facility] 2020-07-31 2020-07-31 Outpatient [facility] [id number] Univers 13:45:00 13:45:00 ity of [facility] 2020-07-31 2020-07-31 Orders Doctor MONICA [id number] Univers 00:00:00 00:00:00 Only Unassigned, CRISTOBAL [id number] ity of [facility] [id number] Jose Roberto as [phone] [address] Results Test Description Test Time Test Comments Results Result Comments Source CBC W/PLT COUNT & AUTO DIFFERENTIAL 2019-07-14 10:04:00 Test Item Value Reference Range Interpretation Comme nts WHITE BLOOD CELL COUNT (BEAKER) (test code = 775) 8.1 K/ L 3.5- 10.5 RED BLOOD CELL COUNT (BEAKER) (test code = 761) 3.66 M/ L 3.93-5 .22 L HEMOGLOBIN (BEAKER) (test code = 410) 10.8 GM/DL 11.2-15.7 L HEMATOCRIT (BEAKER) (test code = 411) 32.2 % 34.1-44.9 L MEAN CORPUSCULAR VOLUME (BEAKER) (test code = 753) 88.0 fL 79. 4-94.8 MEAN CORPUSCULAR HEMOGLOBIN (BEAKER) (test code = 751) 29.5 pg 25.6-32.2 MEAN CORPUSCULAR HEMOGLOBIN CONC (BEAKER) (test code = 752) 33.5 GM/DL 32.2-35.5 RED CELL DISTRIBUTION WIDTH (BEAKER) (test code = 412) 14.7 % 11.7-14.4 H PLATELET COUNT (BEAKER) (test code = 756) 209 K/CU MM 150-450 MEAN PLATELET VOLUME (BEAKER) (test code = 754) 11.5 fL 9.4-12 .3 NUCLEATED RED BLOOD CELLS (BEAKER) (test code = 413) 0 /100 WBC 0 -0 (CELLAVISION MANUAL DIFF)2019-07-14 10:04:00 Test Item Value Reference Range Interpretation Comments NEUTROPHILS - REL 46 % (CELLAVISION)(BEAKER) (test code = 2816) LYMPHOCYTES - REL 44 % (CELLAVISION)(BEAKER) (test code = 2817) MONOCYTES - REL 4 % (CELLAVISION)(BEAKER) (test code = 2818) BASOPHILS - REL 1 % (CELLAVISION)(BEAKER) (test code = 2820) ATYPICAL LYMPHOCYTES - REL 5 % 0-0 H (CELLAVISION)(BEAKER) (test code = 2829) NEUTROPHILS - ABS 3.73 K/ul 1.56-6.13 (CELLAVISION)(BEAKER) (test code = 2830) LYMPHOCYTES - ABS 3.56 K/ul 1.18-3.74 (CELLAVISION)(BEAKER) (test code = 2831) MONOCYTES - ABS 0.32 K/uL 0.24-0.36 (CELLAVISION)(BEAKER) (test code = 2832) BASOPHILS - ABS 0.08 K/uL 0.01-0.08 (CELLAVISION)(BEAKER) (test code = 2835) ATYPICAL LYMPHOCYTES - ABS 0.41 K/uL 0.00-0.00 H (CELLAVISION)(BEAKER) (test code = 2858) TOTAL COUNTED (BEAKER) (test code = 100 1351) WBC MORPHOLOGY (BEAKER) (test code Normal = 487) PLT MORPHOLOGY (BEAKER) (test code Normal = 486) ANISOCYTOSIS (BEAKER) (test code = 1+ few 961) MACROCYTES (BEAKER) (test code = 1+ few 964) POIKILOCYTES (BEAKER) (test code = 1+ few 966) ARTIFACT (CELLAVISION)(BEAKER) Present (test code = 3432) PLATELET CONCENTRATION Adequate (CELLAVISION)(BEAKER) (test code = 3438) Received comment: User comments: Slide comments:RAD, CHEST, 1 VIEW, NON DEPT 2019-07-14 08:09:00Reason for exam:->new PPM implantShould this be performed at the bedside?->YesFINAL REPORT RAD, CHEST, 1 VIEW, NON DEPT INDICATION: new PPM implant COMPARISON: Prior day's exam FINDINGS: Portable frontal view of the chest. IMPRESSION: Support Lines: Left approach pacer apparatus demonstrates grossly appropriate position by radiography. Lungs and pleura: Bibasilar subsegmental atelectasis without consolidation or effusion. No pneumothorax.Heart and mediastinum: Unremarkable contours.Additional findings: None. Signed: JR Fredrick, Storm MDReport V erified Date/Time: 07/14/2019 08:09:32 Reading Location: [facility] Radiology Reading Room CT, CTA CORONARY WITH CALCIUM EVAL AND FFR [id number] 17:09:00Addendum BeginsREPORT STATUS:A Addendum: I agree with the previously described non vascular findings. End of addendum. Signed: Harmony Stewart MDReport Verified Date/Time: 07/13/2019 17:09:37 Reading Location: [facility] Reading RoomAddendum EndsFINAL REPORT PATIENT ID: [id number] coronary angiography, 13-Jul-19 INDICATION: This is a 73 -year old male presents with bradycardia. TECHNIQUE: Spiral acquisition before and during intravenous contrast administration using [employer] multidetector CT scanner. Multi-planar 3-D volume-rendering reconstruction was performed using an independent workstation interactively by the interpreting physician as well as the 3-D specialist for optimal visualisation of the coronary anatomy. Consecutive thin slices (< 1mm) were obtained. Patient has AV dissociation, with high rate of approximately 30 beats minute. Medication administration: Oral metoprolol 0 mg;IV metoprolol 0 mg;S/L nitroglyercin 0.4 mg. Please refer to the contrast sheet scanned in the EPIC system for the amount and route of contrast given. This exam was performed according to our departmental dose- optimisation programme, which includes automated exposure control, adjustment of the mA and/or kV according to patient size and/or use of iterative reconstruction technique. Dose modulation, iterative reconstruction, and/or weight based adjustment of the mA/kV wasutilized to reduce the radiation dose to as low as reasonably achievable. FINDINGS: VASCULAR: The thoracic aorta is normal in course, calibre, contour. No ectasia or aneurysmal dilation is seen. Minimal calcification is seen in the aortic root. There is no acute aortic pathology, specifically, there is no dissection, contained rupture, and intramural hematoma. The arch vessel branching pattern isnormal. The central pulmonary artery is at the upper limits of normal in size. The left ventricle is normal in size. There is normal atrio-ventricular and ventriculo-arterial concordance, and systemicand pulmonary venous return. No pericardial effusion is present. Calcium score and high-resolution, ECG synchronized computed tomography of the heart with attention to the coronary arteries was performed. Coronary calcification was analyzed using the [employer] system software. These are the results of the calcium score evaluation (threshold = 130 HU): LM: = 0 LAD: = 47 LCX: = 0 RCA: = 0 Agatston: = 47 Reference ranges for calcium scores are provided as follows (Meza Clin Proc 1999; 74: 243-252): 0-10: minimal calcium 11-100: mild calcium 101-400 moderate calcium > 400 significant calcium The calcium score places patient between 50th to 75th percentile for age group, using the SRIVASTAVA database. The coronary arteries have normal origins. The left main coronary artery arises from the left sinus of Valsalva and give rise to the left anterior descending of the left circumflex arteries in the normal fashion. The right coronary artery arises from the right sinus of Valsalva. The left main coronary artery is widely patent. The proximal LAD has eccentric nonobstructive calcification identified proximally with only luminal irregularities identified. The proximal, mid, distal LAD has no obstructive lesion identified. The first diagonal artery is a small calibre vessel and is widely patent. The left circumflex artery is nondominant. The proximal and mid segment and widely patent. The first OM branch measures approximately 2.5 mm in diameter and is widely patent. The right coronary artery is a dominant vessel. The proximal, mid, and distal RCA are widely patent. The PDA and a PL branch are also widely patent proximally. NON- VASCULAR: A 4 mm calcification is identified in the posterior aspect of the left thyroid lobe at image 3. An addendum will dictated thereafter if needed. The chest wall and mediastinum appears unremarkable. No significant adenopathy is identified in the mediastinum. In the lung windows, no endobronchial lesion is s een. Trace bibasal pleural effusion is identified, left greater right. Subsegmental atelectatic changes are seen. Overall, no suspicious pulmonary nodule is identified. Limited images of the upper abdomen reveals no gross abnormality. No acute bony pathology is seen. CONCLUSIONS: 1. Quantitative coronary artery calcium Agatston score of 47. The calcium score places patient between 50th to 75th percentile for age group, using the SRIVASTAVA database. Focal calcification is seen in the proximal LAD territory. 2. Normal coronary artery origins. The major epicardial coronary arteries including the leftmain coronary artery, the left anterior descending artery, left circumflex artery, and the right coronary artery are widely patent with no focal stenosis. Tiny focal calcification is identified in the proximal LAD indicating early atherosclerosis in the absence of obstructive disease. Data is not sentfor CT analysis, as it is not indicated. Furthermore, the most inferior aspect of the heart is not included due to different breathing pattern. 3. Small bibasal pleural effusion is identified. No suspicious pulmonary nodule is identified. 4. Normal thoracic aorta. No ectasia or aneurysmal dilation is seen. Minimal calcification is identified aortic root 5. Other findings as described above. 6. The non-vascular findings will be reviewed by the Project Management Analyst Radiologist and addendum will be added as needed. Major vascular findings were discussed with the Project Management Analyst [employer] Strategy at the time of dictation. Signed: Kevin Santana MDReport Verified Date/Time: 07/13/2019 09:48:28 [id number] 08:18:00 Test Item Value Reference Range Interpretation Comments MAGNESIUM (BEAKER) (test code = 2.0 mg/dL 1.6-2.6 627) COMPREHENSIVE METABOLIC [id number] 08:18:00 Test Item Value Reference Range Interpretation Comments TOTAL PROTEIN 6.6 gm/dL 6.0-8.3 (BEAKER) (test code = 770) ALBUMIN (BEAKER) 3.3 g/dL 3.5-5.0 L (test code = 1145) ALKALINE PHOSPHATASE 76 U/L 40-150 (BEAKER) (test code = 346) BILIRUBIN TOTAL 0.9 mg/dL 0.2-1.2 (BEAKER) (test code = 377) SODIUM (BEAKER) (test 140 meq/L 136-145 code = 381) POTASSIUM (BEAKER) 3.9 meq/L 3.5-5.1 (test code = 379) CHLORIDE (BEAKER) 113 meq/L 98-107 H (test code = 382) CO2 (BEAKER) (test 20 meq/L 22-29 L code = 355) BLOOD UREA NITROGEN 16 mg/dL 7-21 (BEAKER) (test code = 354) CREATININE (BEAKER) 1.16 mg/dL 0.57-1.25 (test code = 358) GLUCOSE RANDOM 76 mg/dL 70-105 (BEAKER) (test code = 652) CALCIUM (BEAKER) 8.8 mg/dL 8.4-10.2 (test code = 697) AST (SGOT) (BEAKER) 30 U/L 5-34 (test code = 353) ALT (SGPT) (BEAKER) 46 U/L 6-55 (test code = 347) EGFR (BEAKER) (test 56 mL/min/1.73 ESTIMA BARRON GFR IS code = 1092) sq m NOT ACCURATE CREATININE CLEARANCE IN PREDICTING GLOMERULAR FILTRATION RATE . ESTIMATED GFR I S NOT APPLICABLE FOR DIALYSIS PATIEN TS. CBC W/PLT COUNT & AUTO [id number] 08:01:00 Test Item Value Reference Range Interpretation Comments WHITE BLOOD CELL COUNT (BEAKER) 8.6 K/ L 3.5-10.5 (test code = 775) RED BLOOD CELL COUNT (BEAKER) 3.66 M/ L 3.93-5.22 L (test code = 761) HEMOGLOBIN (BEAKER) (test code = 10.7 GM/DL 11.2-15.7 L 410) HEMATOCRIT (BEAKER) (test code = 31.9 % 34.1-44.9 L 411) MEAN CORPUSCULAR VOLUME (BEAKER) 87.2 fL 79.4-94.8 (test code = 753) MEAN CORPUSCULAR HEMOGLOBIN 29.2 pg 25.6-32.2 (BEAKER) (test code = 751) MEAN CORPUSCULAR HEMOGLOBIN CONC 33.5 GM/DL 32.2-35.5 (BEAKER) (test code = 752) RED CELL DISTRIBUTION WIDTH 14.6 % 11.7-14.4 H (BEAKER) (test code = 412) PLATELET COUNT (BEAKER) (test 211 K/CU MM 150-450 code = 756) MEAN PLATELET VOLUME (BEAKER) 11.1 fL 9.4-12.3 (test code = 754) NUCLEATED RED BLOOD CELLS 0 /100 WBC 0-0 (BEAKER) (test code = 413) NEUTROPHILS RELATIVE PERCENT 33 % (BEAKER) (test code = 429) LYMPHOCYTES RELATIVE PERCENT 56 % (BEAKER) (test code = 430) MONOCYTES RELATIVE PERCENT 8 % (BEAKER) (test code = 431) EOSINOPHILS RELATIVE PERCENT 3 % (BEAKER) (test code = 432) BASOPHILS RELATIVE PERCENT 1 % (BEAKER) (test code = 437) NEUTROPHILS ABSOLUTE COUNT 2.78 K/ L 1.56-6.13 (BEAKER) (test code = 670) LYMPHOCYTES ABSOLUTE COUNT 4.79 K/ L 1.18-3.74 H (BEAKER) (test code = 414) MONOCYTES ABSOLUTE COUNT (BEAKER) 0.67 K/ L 0.24-0.36 H (test code = 415) EOSINOPHILS ABSOLUTE COUNT 0.25 K/ L 0.04-0.36 (BEAKER) (test code = 416) BASOPHILS ABSOLUTE COUNT (BEAKER) 0.05 K/ L 0.01-0.08 (test code = 417) IMMATURE GRANULOCYTES-RELATIVE 0 % 0-1 PERCENT (BEAKER) (test code = 2801) CBC W/PLT COUNT & AUTO [id number] 09:57:00 Test Item Value Reference Range Interpretation Comments WHITE BLOOD CELL COUNT (BEAKER) 7.7 K/ L 3.5-10.5 (test code = 775) RED BLOOD CELL COUNT (BEAKER) 3.56 M/ L 3.93-5.22 L (test code = 761) HEMOGLOBIN (BEAKER) (test code = 10.6 GM/DL 11.2-15.7 L 410) HEMATOCRIT (BEAKER) (test code = 30.6 % 34.1-44.9 L 411) MEAN CORPUSCULAR VOLUME (BEAKER) 86.0 fL 79.4-94.8 (test code = 753) MEAN CORPUSCULAR HEMOGLOBIN 29.8 pg 25.6-32.2 (BEAKER) (test code = 751) MEAN CORPUSCULAR HEMOGLOBIN CONC 34.6 GM/DL 32.2-35.5 (BEAKER) (test code = 752) RED CELL DISTRIBUTION WIDTH 14.1 % 11.7-14.4 (BEAKER) (test code = 412) PLATELET COUNT (BEAKER) (test 196 K/CU MM 150-450 code = 756) MEAN PLATELET VOLUME (BEAKER) 11.1 fL 9.4-12.3 (test code = 754) NUCLEATED RED BLOOD CELLS 0 /100 WBC 0-0 (BEAKER) (test code = 413) (CELLAVISION MANUAL DIFF)2019-07-12 09:57:00 Test Item Value Reference Range Interpretation Comments NEUTROPHILS - REL 41 % (CELLAVISION)(BEAKER) (test code = 2816) LYMPHOCYTES - REL 39 % (CELLAVISION)(BEAKER) (test code = 2817) MONOCYTES - REL 8 % (CELLAVISION)(BEAKER) (test code = 2818) EOSINOPHILS - REL 1 % (CELLAVISION)(BEAKER) (test code = 2819) BASOPHILS - REL 1 % (CELLAVISION)(BEAKER) (test code = 2820) ATYPICAL LYMPHOCYTES - REL 9 % 0-0 H (CELLAVISION)(BEAKER) (test code = 2829) NEUTROPHILS - ABS 3.16 K/ul 1.56-6.13 (CELLAVISION)(BEAKER) (test code = 2830) LYMPHOCYTES - ABS 3.00 K/ul 1.18-3.74 (CELLAVISION)(BEAKER) (test code = 2831) MONOCYTES - ABS 0.62 K/uL 0.24-0.36 H (CELLAVISION)(BEAKER) (test code = 2832) EOSINOPHILS - ABS 0.08 K/uL 0.04-0.36 (CELLAVISION)(BEAKER) (test code = 2834) BASOPHILS - ABS 0.08 K/uL 0.01-0.08 (CELLAVISION)(BEAKER) (test code = 2835) ATYPICAL LYMPHOCYTES - ABS 0.69 K/uL 0.00-0.00 H (CELLAVISION)(BEAKER) (test code = 2858) TOTAL COUNTED (BEAKER) (test code = 100 1351) WBC MORPHOLOGY (BEAKER) (test code Normal = 487) PLT MORPHOLOGY (BEAKER) (test code Normal = 486) POIKILOCYTES (BEAKER) (test code = 1+ few 966) ARTIFACT (CELLAVISION)(BEAKER) Present (test code = 3432) PLATELET CONCENTRATION Adequate (CELLAVISION)(BEAKER) (test code = 3438) Received comment: User comments: Slide comments:HEMOGLOBIN [id number] 09:46:00 Test Item Value Reference Range Interpretation Comments HEMOGLOBIN A1C (BEAKER) (test code = 5.0 % 4.3-6.1 368) [id number] 05:33:00 Test Item Value Reference Range Interpretation Comments MAGNESIUM (BEAKER) (test code = 2.1 mg/dL 1.6-2.6 627) COMPREHENSIVE METABOLIC [id number] 05:33:00 Test Item Value Reference Range Interpretation Comments TOTAL PROTEIN 6.2 gm/dL 6.0-8.3 (BEAKER) (test code = 770) ALBUMIN (BEAKER) 3.1 g/dL 3.5-5.0 L (test code = 1145) ALKALINE PHOSPHATASE 79 U/L 40-150 (BEAKER) (test code = 346) BILIRUBIN TOTAL 0.7 mg/dL 0.2-1.2 (BEAKER) (test code = 377) SODIUM (BEAKER) (test 140 meq/L 136-145 code = 381) POTASSIUM (BEAKER) 3.5 meq/L 3.5-5.1 (test code = 379) CHLORIDE (BEAKER) 113 meq/L 98-107 H (test code = 382) CO2 (BEAKER) (test 21 meq/L 22-29 L code = 355) BLOOD UREA NITROGEN 18 mg/dL 7-21 (BEAKER) (test code = 354) CREATININE (BEAKER) 1.21 mg/dL 0.57-1.25 (test code = 358) GLUCOSE RANDOM 92 mg/dL 70-105 (BEAKER) (test code = 652) CALCIUM (BEAKER) 8.3 mg/dL 8.4-10.2 L (test code = 697) AST (SGOT) (BEAKER) 37 U/L 5-34 H (test code = 353) ALT (SGPT) (BEAKER) 54 U/L 6-55 (test code = 347) EGFR (BEAKER) (test 53 mL/min/1.73 ESTIMA BARRON GFR IS code = 1092) sq m NOT ACCURATE CREATININE CLEARANCE IN PREDICTING GLOMERULAR FILTRATION RATE . ESTIMATED GFR I S NOT APPLICABLE FOR DIALYSIS PATIEN TS. TSH/FREE T4 IF [id number] 16:58:00 Test Item Value Reference Range Interpretation Comments THYROID STIMULATING HORMONE 2.30 uIU/mL 0.35-4.94 (BEAKER) (test code = 772) B-TYPE NATRIURETIC FACTOR (BNP)2019-07-11 16:43:00 Test Item Value Reference Range Interpretation Comments B-TYPE NATRIURETIC PEPTIDE (BEAKER) 503 pg/mL 0-100 H (test code = 700) CBC W/PLT COUNT & AUTO [id number] 16:42:00 Test Item Value Reference Range Interpretation Comments WHITE BLOOD CELL COUNT (BEAKER) 9.0 K/ L 3.5-10.5 (test code = 775) RED BLOOD CELL COUNT (BEAKER) 4.03 M/ L 3.93-5.22 (test code = 761) HEMOGLOBIN (BEAKER) (test code = 12.0 GM/DL 11.2-15.7 410) HEMATOCRIT (BEAKER) (test code = 35.6 % 34.1-44.9 411) MEAN CORPUSCULAR VOLUME (BEAKER) 88.3 fL 79.4-94.8 (test code = 753) MEAN CORPUSCULAR HEMOGLOBIN 29.8 pg 25.6-32.2 (BEAKER) (test code = 751) MEAN CORPUSCULAR HEMOGLOBIN CONC 33.7 GM/DL 32.2-35.5 (BEAKER) (test code = 752) RED CELL DISTRIBUTION WIDTH 14.4 % 11.7-14.4 (BEAKER) (test code = 412) PLATELET COUNT (BEAKER) (test 210 K/CU MM 150-450 code = 756) MEAN PLATELET VOLUME (BEAKER) 10.6 fL 9.4-12.3 (test code = 754) NUCLEATED RED BLOOD CELLS 0 /100 WBC 0-0 (BEAKER) (test code = 413) (CELLAVISION MANUAL DIFF)2019-07-11 16:42:00 Test Item Value Reference Range Interpretation Comments NEUTROPHILS - REL 39 % (CELLAVISION)(BEAKER) (test code = 2816) LYMPHOCYTES - REL 36 % (CELLAVISION)(BEAKER) (test code = 2817) MONOCYTES - REL 5 % (CELLAVISION)(BEAKER) (test code = 2818) EOSINOPHILS - REL 2 % (CELLAVISION)(BEAKER) (test code = 2819) BASOPHILS - REL 2 % (CELLAVISION)(BEAKER) (test code = 2820) BANDS - REL (CELLAVISION)(BEAKER) 1 % 0-10 (test code = 2826) BLASTS - REL (CELLAVISION)(BEAKER) 1 % 0-0 H (test code = 2827) ATYPICAL LYMPHOCYTES - REL 13 % 0-0 H (CELLAVISION)(BEAKER) (test code = 2829) NEUTROPHILS - ABS 3.51 K/ul 1.56-6.13 (CELLAVISION)(BEAKER) (test code = 2830) LYMPHOCYTES - ABS 3.24 K/ul 1.18-3.74 (CELLAVISION)(BEAKER) (test code = 2831) MONOCYTES - ABS 0.45 K/uL 0.24-0.36 H (CELLAVISION)(BEAKER) (test code = 2832) EOSINOPHILS - ABS 0.18 K/uL 0.04-0.36 (CELLAVISION)(BEAKER) (test code = 2834) BASOPHILS - ABS 0.18 K/uL 0.01-0.08 H (CELLAVISION)(BEAKER) (test code = 2835) BANDS - ABS (CELLAVISION)(BEAKER) 0.09 K/uL 0.00-0.80 (test code = 2840) BLASTS - ABS (CELLAVISION)(BEAKER) 0.09 K/uL 0.00-0.00 H (test code = 2845) ATYPICAL LYMPHOCYTES - ABS 1.17 K/uL 0.00-0.00 H (CELLAVISION)(BEAKER) (test code = 8908) TOTAL COUNTED (BEAKER) (test code = 100 1351) WBC MORPHOLOGY (BEAKER) (test code Normal = 487) GIANT PLATELETS (BEAKER) (test code Present = 313) ANISOCYTOSIS (BEAKER) (test code = 1+ few 961) MACROCYTES (BEAKER) (test code = 1+ few 964) POIKILOCYTES (BEAKER) (test code = 1+ few 966) TARGET CELLS (BEAKER) (test code = 1+ few 480) ELLIPTOCYTES (BEAKER) (test code = 1+ few 962) ARTIFACT (CELLAVISION)(BEAKER) Present (test code = 3432) PLATELET CONCENTRATION Adequate (CELLAVISION)(BEAKER) (test code = 3435) Received comment: User comments: Slide comments:[id number] 16:40:00 Test Item Value Reference Range Interpretation Comments PHOSPHORUS (BEAKER) (test code = 3.2 mg/dL 2.3-4.7 604) [id number] 16:40:00 Test Item Value Reference Range Interpretation Comments MAGNESIUM (BEAKER) (test code = 2.0 mg/dL 1.6-2.6 627) COMPREHENSIVE METABOLIC [id number] 16:40:00 Test Item Value Reference Range Interpretation Comments TOTAL PROTEIN 7.4 gm/dL 6.0-8.3 (BEAKER) (test code = 770) ALBUMIN (BEAKER) 3.8 g/dL 3.5-5.0 (test code = 1145) ALKALINE PHOSPHATASE 97 U/L 40-150 (BEAKER) (test code = 346) BILIRUBIN TOTAL 0.8 mg/dL 0.2-1.2 (BEAKER) (test code = 377) SODIUM (BEAKER) (test 142 meq/L 136-145 code = 381) POTASSIUM (BEAKER) 3.7 meq/L 3.5-5.1 (test code = 379) CHLORIDE (BEAKER) 111 meq/L 98-107 H (test code = 382) CO2 (BEAKER) (test 26 meq/L 22-29 code = 355) BLOOD UREA NITROGEN 18 mg/dL 7-21 (BEAKER) (test code = 354) CREATININE (BEAKER) 1.21 mg/dL 0.57-1.25 (test code = 358) GLUCOSE RANDOM 74 mg/dL 70-105 (BEAKER) (test code = 652) CALCIUM (BEAKER) 9.0 mg/dL 8.4-10.2 (test code = 697) AST (SGOT) (BEAKER) 59 U/L 5-34 H (test code = 353) ALT (SGPT) (BEAKER) 85 U/L 6-55 H (test code = 347) EGFR (BEAKER) (test 53 mL/min/1.73 ESTIMA BARRON GFR IS code = 1092) sq m NOT ACCURATE CREATININE CLEARANCE IN PREDICTING GLOMERULAR FILTRATION RATE . ESTIMATED GFR I S NOT APPLICABLE FOR DIALYSIS PATIEN TS. PROTHROMBIN TIME/[id number] 16:20:00 Test Item Value Reference Range Interpretation Comments PROTIME (BEAKER) (test code = 13.5 seconds 11.9-14.2 759) INR (BEAKER) (test code = 370) 1.1 <=5.9 Effective 12/07/2018: PT Reference Range ChangeNew: 11.9-14.2 Previous: 11.7- 14.7RECOMMENDED COUMADIN/WARFARIN INR THERAPY RANGESSTANDARD DOSE: 2.0-3.0 Includes: PROPHYLAXIS for venous thrombosis, systemic embolization; TREATMENT for venous thrombosis and/or pulmonary embolus.HIGH RISK: Target INR is2.5-3.5 for patients wiht mechanical heart valves.
== END 2021-05-18 10:10 | disposition home or self-care (01) ==
LOC: ER 09:58
DX: Z48.02 Encounter for removal of sutures (principal)
CPT/HCPCS: 99281

== ENCOUNTER 2021-06-26 09:58 | Emergency (ER) | payer OTHER ==
--- OUTSIDE RECORDS SUMMARY | 2021-06-26 10:01 | XMS REPORT | Continuity of Care Document ---
:1945 Author Organization [facility] t Address [address] [place] [address] [address]. [address] [place] [address] Care Team Providers Name Role Phone FISH [...] CLINDAMY DRUG Active High Rash 2018- Univers GARRET INGREDI 2-31 ity of 00:00: [address] Clindamy Drug Active Rash 2018- Univers garret Allergy 2-31 ity of 00:00: [address] NO KNOWN Drug Active Univers ALLERGIE Class ity of S [facility] Social History Social Habit Start Date Stop Date Quantity Comments Source Alcohol intake 2020-07-31 2020-07-31 Current drinker Unive rsity of 00:00:00 00:00:00 of alcohol [facility] (finding) [facility] History SDOH 2020-07-31 2020-07-31 99 University o f Alcohol Frequency 00:00:00 00:00:00 [place] [facility] History SDOH 2020-07-31 2020-07-31 1 University o f Alcohol Std 00:00:00 00:00:00 [facility] Drinks [facility] History [facility] 2020-07-31 2020-07-31 99 University o f Alcohol Binge 00:00:00 00:00:00 [facility] Tobacco use and 2020-07-31 2020-07-31 Never used Universit y of exposure 00:00:00 00:00:00 [facility] Sex Assigned At [birth year] [facility] y of 00:00:00 00:00:00 [facility] Smoking Status Start Date Stop Date Source Unknown if ever smoked [facility] Never smoker [facility] Medications Ordered Filled Start Stop Current Ordering Indication Dosage Frequency Signature Comments Components Source Medication Medication Date Date Medication? Clinician (SIG) Name Name aspirin 81 Yes 81mg Take 81 mg U nivers mg EC 1-20 by mouth. ity of tablet 19:58: [address] brinzolamid Yes 1[drp] 1 Drop. U nivers e 1 % 1-20 ity of ophthalmic 19:58: [place] suspension Medical drops Branch foLIC acid Yes 1mg Take 1 mg Un lefty 1 mg tablet 1-20 by mouth. ity of 19:58: [address] multivitami Yes 1{tbl} Take 1 Un lefty n tablet 1-20 tablet by ity of 19:58: mouth. [address] levothyroxi Yes 100ug Take 100 U nivers ne 100 mcg 1-20 mcg by ity of tablet 19:58: mouth. [address] Yes Place in U nivers te 1-20 each eye. ity of (DUREZOL) 19:58: [place] 0.05 % Drop [address] [place] [address] in U nivers -Timolol 1-20 each eye. ity of (COMBIGAN) 19:58: [place] 0.2-0.5 % [address] [place] [address] ophthalmic Branch drops mirabegron Yes Take by Uni vers (MYRBETRIQ) 1-20 mouth. ity of 50 mg 19:58: [place] tablet [address] [place] [address] Lactobacill Yes Take by Un lefty us 1-20 mouth. ity of acidophilus 19:58: [place] (PROBIOTIC Medical ORAL) Branch BIOTIN ORAL Yes Take by Un lefty 1-20 mouth. ity of 19:58: [address] psyllium Yes Take by Unive rs seed, with 1-20 mouth. ity of dextrose, 19:58: [place] (FIBER 49 Medical ORAL) [place] docusate Yes Take by Unive rs sodium 1-20 mouth. ity of (STOOL 19:58: [place] SOFTENER 49 Medical ORAL) [place] atorvastati 2019-07 Yes 40mg Take 40 mg Univers n 40 mg 1-14 by mouth ity of tablet 00:00: at [place] 00 bedtime. [facility] Procedures Procedure Date / Time Performing Clinician Source Performed PATIENT QUESTIONNAIRE 2020-12-13 05:01:00 Doctor Unassigned, No [facility] ASSIGNMENT OF BENEFITS 2020-07-31 19:34:11 Doctor Unassigned, No [facility] Encounters Start End Encounter Admission Attending Care Care Encounter Source Date/Time Date/Time Type Type Clinicians Facility Department ID 2021-04-28 2021-04-28 Outpatient PITER DIEHL [facility] [id number] Univers 09:00:00 09:00:00 [id number] ity [facility] 2021-04-28 2021-04-28 Outpatient PITER DIE[facility] [id number] Univers 09:00:00 09:00:00 ity [facility] 2020-12-13 2020-12-13 Orders Doctor ANDERSON [id number] Univers 00:00:00 00:00:00 Only Unassigned, CRISTOBAL [id number] ity of [facility] [id number] Jose Roberto as [phone] [address] 2020-08-17 2020-08-17 Outpatient [facility] [id number] Univers 08:30:00 08:30:00 [id number] ity [facility] 2020-08-17 2020-08-17 Outpatient [facility] [id number] Univers 08:30:00 08:30:00 ity [facility] 2020-08-01 2020-08-01 Outpatient [facility]ITER DIE[facility] [id number] Univers 14:00:00 14:00:00 ity [facility] 2020-07-31 2020-07-31 Outpatient PITER DIEHL [facility] [id number] Univers 13:45:00 13:45:00 ity of [facility] 2020-07-31 2020-07-31 Orders Doctor MONICA [id number] Univers 00:00:00 00:00:00 Only Unassigned, CRISTOBAL [id number] ity of [facility] [id number] Jose Roberto as [phone] [address] Results Test Description Test Time Test [...] and mediastinum: Unremarkable contours.Additional findings: None. Signed: Klinglesmith, JR, Storm MDReport V erified Date/Time: 07/14/2019 08:09:32 Reading Location: [facility] Radiology Reading Room CT, CTA CORONARY WITH CALCIUM EVAL AND FFR [id number] 17:09:00Addendum BeginsREPORT STATUS:A Addendum: I agree with the previously described non vascular findings. End of addendum. Signed: Cheyenne Stewart MDReport Verified Date/Time: 07/13/2019 17:09:37 Reading Location: [facility] Reading RoomAddendum EndsFINAL REPORT PATIENT ID: [id number] coronary angiography, 13-Jul-19 INDICATION: This is a 73 -year old male presents with bradycardia. TECHNIQUE: Spiral acquisition before and during intravenous contrast administration using [employer] multidetector CT scanner. Multi-planar 3-D volume-rendering reconstruction [...] performed. Coronary calcification was analyzed using the [employer] system software. These are the results of [...] non-vascular findings will be reviewed by the Re Dye Hand Radiologist and addendum will be added as needed. Major vascular findings were discussed with the Re Dye Hand Otologist at the time of dictation. Signed: Kevin Santana [facility] Verified Date/Time: 07/13/2019 09:48:28 [id number] 08:18:00 Test Item Value Reference Range Interpretation Comments MAGNESIUM (BEAKER) (test code = 2.0 mg/dL 1.6-2.6 627) COMPREHENSIVE METABOLIC [id number] 08:18:00 Test Item Value Reference Range Interpretation [...] PATIEN TS. CBC W/PLT COUNT & AUTO [id number] 08:01:00 Test Item Value Reference Range Interpretation [...] = 2801) CBC W/PLT COUNT & AUTO [id number] 09:57:00 Test Item Value Reference Range Interpretation [...] 3438) Received comment: User comments: Slide comments:HEMOGLOBIN [id number] 09:46:00 Test Item Value Reference Range Interpretation Comments HEMOGLOBIN A1C (BEAKER) (test code = 5.0 % 4.3-6.1 368) [id number] 05:33:00 Test Item Value Reference Range Interpretation Comments MAGNESIUM (BEAKER) (test code = 2.1 mg/dL 1.6-2.6 627) COMPREHENSIVE METABOLIC [id number] 05:33:00 Test Item Value Reference Range Interpretation [...] FOR DIALYSIS PATIEN TS. TSH/FREE T4 IF [id number] 16:58:00 Test Item Value Reference Range Interpretation Comments THYROID STIMULATING HORMONE 2.30 uIU/mL 0.35-4.94 (BEAKER) (test code = 772) B-TYPE NATRIURETIC FACTOR (BNP)2019-07-11 16:43:00 Test Item Value Reference Range Interpretation Comments B-TYPE NATRIURETIC PEPTIDE (BEAKER) 503 pg/mL 0-100 H (test code = 700) CBC W/PLT COUNT & AUTO [id number] 16:42:00 Test Item Value Reference Range Interpretation [...] K/uL 0.00-0.00 H (CELLAVISION)(BEAKER) (test code = 1038) TOTAL COUNTED (BEAKER) (test code = 100 [...] PLATELET CONCENTRATION Adequate (CELLAVISION)(BEAKER) (test code = 3433) Received comment: User comments: Slide comments:[id number] 16:40:00 Test Item Value Reference Range Interpretation Comments PHOSPHORUS (BEAKER) (test code = 3.2 mg/dL 2.3-4.7 604) [id number] 16:40:00 Test Item Value Reference Range Interpretation Comments MAGNESIUM (BEAKER) (test code = 2.0 mg/dL 1.6-2.6 627) COMPREHENSIVE METABOLIC [id number] 16:40:00 Test Item Value Reference Range Interpretation [...] NOT APPLICABLE FOR DIALYSIS PATIEN TS. PROTHROMBIN TIME/[id number] 16:20:00 Test Item Value Reference Range Interpretation [...]
[2021-06-26] MEDS ORDERED: LIDOCAINE 1% MPF 5 ML VIAL ONE (11:24)
[2021-06-26] MEDS ORDERED: BUPIVACAINE 0.5% PF 10 ML VIAL ONE (11:24)
--- NOTE | 2021-06-26 12:05 | ER ---
Nurse's Notes [facility] Name: Karol Beckett Age: 75 yrs Sex: Female : 1945 Arrival Date: 06/26/2021 Time: 09:58 Bed 9 Private MD: Diagnosis: Laceration without foreign body of left little finger with damage to nail, initial encounter Presentation: 06/26 10:16 Chief complaint: Patient states: Left pinky laceration cut with knife while cooking. vg1 Coronavirus screen: Vaccine status: Patient reports receiving the 2nd dose of the covid vaccine. Ebola Screen: Patient negative for fever greater than or equal to 101.5 degrees Fahrenheit, and additional compatible Ebola Virus Disease symptoms Patient denies exposure to infectious person. Patient denies travel to an Ebola-affected area in the 21 days before illness onset. No symptoms or risks identified at this time. Complicating Factors: There are no complicating factors for this patient. Initial Sepsis Screen: Does the patient meet any 2 criteria? No. Patient's initial sepsis screen is negative. Does the patient have a suspected source of infection? No. Patient's initial sepsis screen is negative. Risk Assessment: Do you want to hurt yourself or someone else? Patient reports no desire to harm self or others. Onset of symptoms was June 26, 2021. 10:16 Method Of Arrival: Ambulatory vg1 10:16 Acuity: EITAN 4 vg1 Triage Assessment: 10:18 General: Appears in no apparent distress. comfortable, Behavior is calm, cooperative. vg1 Pain: Denies pain. Injury Description: Laceration sustained to palmar aspect of distal phalanx of left little finger and left little fingernail. Historical: - PSHx: 10:18 None; vg1 - Immunization history:: Adult Immunizations up to date, Client reports receiving the 2nd dose of the Covid vaccine. - Social history:: Smoking status: Patient denies any tobacco usage or history of. Screenin:30 Abuse screen: Denies threats or abuse. Denies injuries from another. Nutritional ww screening: No deficits noted. Tuberculosis screening: No symptoms or risk factors identified. Fall Risk None identified. Assessment: 11:30 General: Appears in no apparent distress. comfortable, well groomed, well developed, ww well nourished, Behavior is cooperative, appropriate for age. Pain: Denies pain. Neuro: No deficits noted. Level of Consciousness is awake, alert, obeys commands, Oriented to person, place, time, situation, Appropriate for age Gait is steady, Speech is normal. Cardiovascular: No deficits noted. Capillary refill < 3 seconds. Respiratory: No deficits noted. Airway is patent Respiratory effort is even, unlabored, Respiratory pattern is regular, symmetrical. GI: No deficits noted. No signs and/or symptoms were reported involving the gastrointestinal system. : No deficits noted. No signs and/or symptoms were reported regarding the genitourinary system. EENT: No deficits noted. No signs and/or symptoms were reported regarding the EENT system. Derm: No deficits noted. No signs and/or symptoms reported regarding the dermatologic system. Skin is intact, Skin is dry, Skin is pink, warm \T\ dry. Musculoskeletal: laceration to left 5th digit. Injury Description: Laceration sustained to palmar aspect of distal phalanx of left little finger is clean, bleeding moderately. 12:32 Reassessment: Patient appears in no apparent distress at this time. No changes from ww previously documented assessment. Patient states feeling better. Vital Signs: 10:16 BP 141 / 99; Pulse 80; Resp 18; Temp 97.9; Pulse Ox 100% ; Weight 81.65 kg; Height 5 vg1 ft. 8 in. (172.72 cm); Pain 0/10; 12:32 BP 186 / 91; Pulse 61; Resp 18; ww 10:16 Body Mass Index 27.37 (81.65 kg, 172.72 cm) vg1 [place] Coma Score: 12:32 Eye Response: spontaneous(4). Verbal Response: oriented(5). Motor Response: obeys ww commands(6). Total: 15. ED Course: 09:58 Patient arrived in ED. as 10:18 Triage completed. vg1 10:18 Arm band placed on. vg1 10:24 Lu Saldana RN is Primary Nurse. ww 10:25 Caroline Anand FNP-C is PHCP. kb 10:25 Joel Cintron MD is Attending Physician. kb 11:30 Patient has correct armband on for positive identification. Bed in low position. Call ww light in reach. 12:32 No provider procedures requiring assistance completed. Dressings: Kerlix X 1; dorsal ww aspect of distal phalanx of left little finger, dorsal aspect of middle phalanx of left little finger and left little fingernail. 12:32 Patient did not have IV access during this emergency room visit. ww Administered Medications: No medications were administered Outcome: 12:05 Discharge ordered by . kb 12:32 Discharged to home ambulatory. ww 12:32 Condition: stable 12:32 Discharge instructions given to patient, Instructed on discharge instructions, follow up and referral plans. safety practices, Demonstrated understanding of instructions, follow-up care, medications, wound care. 12:33 Patient left the ED. ww Signatures: Caroline Anand, YARDAGE CALLER-C JOANNA-Digna Renner Victoria, RN RN vg1 Lu Saldana RN RN ww Corrections: (The following items were deleted from the chart) 10:19 10:18 PMHx: Glaucoma; vg1 vg1 10:19 10:18 PMHx: staph infection; vg1 vg1 10:19 10:18 PMHx: Non-Hodgkins Lymphoma; vg1 vg1 10:19 10:18 PMHx: Hypothyroidism; vg1 vg1 10:19 10:18 PMHx: Hypertension; vg1 vg1 10:19 10:18 PMHx: CVA; vg1 vg1 10:20 10:16 Resp 18bpm; Temp 97.9F; 81.65 kg; Height 5 ft. 8 in.; BMI: 27.3; Pain 0/10; vg1 vg1
--- NOTE | 2021-06-26 12:05 | EDPHYS ---
Physician Documentation [facility] Name: Karol Beckett Age: 75 yrs Sex: Female : 1945 Arrival Date: 06/26/2021 Time: 09:58 Bed 9 Private MD: ED Physician Joel Cintron HPI: 06/26 15:38 This 75 yrs old Black Female presents to ER via Ambulatory with complaints of kb Laceration - finger. 15:38 The patient has a laceration related to: cooking, occurred at home, and there are no kb complicating factors. The injury was accidental. The laceration(s) is(are) located on the dorsal aspect of middle phalanx of left little finger and dorsal aspect of distal phalanx of left little finger. Onset: The symptoms/episode began/occurred just prior to arrival. Associated signs and symptoms: The patient has no apparent associated signs or symptoms. The patient has not experienced similar symptoms in the past. The patient has not recently seen a physician. Pt accidentally cut tip of left fifth digit while cooking. Refuses x-ray. Historical: - PSHx: 10:18 None; vg1 - Immunization history:: Adult Immunizations up to date, Client reports receiving the 2nd dose of the Covid vaccine. - Social history:: Smoking status: Patient denies any tobacco usage or history of. ROS: 15:40 Constitutional: Negative for fever, chills, and weight loss. kb 15:40 Skin: Positive for laceration(s), of the palmar aspect of distal phalanx of left little finger and dorsal aspect of middle phalanx of left little finger. 15:40 All other systems are negative. Exam: 15:40 Constitutional: This is a well developed, well nourished patient who is awake, alert, kb and in no acute distress. Head/Face: Normocephalic, atraumatic. Respiratory: Respirations even and unlabored. No increased work of breathing. Talking in full sentences MS/ Extremity: Pulses equal, no cyanosis. Neurovascular intact. Full, normal range of motion. Neuro: Awake and alert, GCS 15, oriented to person, place, time, and situation. Moves all extremities. Normal gait. Psych: Awake, alert, with orientation to person, place and time. Behavior, mood, and affect are within normal limits. 15:40 Skin: injury, laceration(s), the wound is approximately 1.5 cm(s), of the palmar aspect of distal phalanx of left little finger and dorsal aspect of distal phalanx of left little finger, that can be described as clean, no foreign body, linear, without bleeding. Vital Signs: 10:16 BP 141 / 99; Pulse 80; Resp 18; Temp 97.9; Pulse Ox 100% ; Weight 81.65 kg; Height 5 vg1 ft. 8 in. (172.72 cm); Pain 0/10; 12:32 BP 186 / 91; Pulse 61; Resp 18; ww 10:16 Body Mass Index 27.37 (81.65 kg, 172.72 cm) vg1 Jacy Coma Score: 12:32 Eye Response: spontaneous(4). Verbal Response: oriented(5). Motor Response: obeys ww commands(6). Total: 15. Laceration: 12:04 Wound Repair of 1.5cm ( 0.6in ) subcutaneous laceration to dorsal aspect of distal kb phalanx of left little finger and palmar aspect of distal phalanx of left little finger. Irregularly shaped.. Skin/tissue flap noted.. Distal neuro/vascular/tendon intact. Anesthesia: Digital block administered with Lido/Marcaine. Wound prep: Extensive cleansing with hibiclenz by me, Wound irrigation with saline by me. Skin closed with 4 5-0 Prolene using simple sutures and sterile technique. Patient tolerated well. MDM: 10:25 Patient medically screened. kb 15:38 Data reviewed: vital signs, nurses notes. Data interpreted: Pulse oximetry: on room air kb is 100 %. Interpretation: normal. Counseling: I had a detailed discussion with the patient and/or guardian regarding: the historical points, exam findings, and any diagnostic results supporting the discharge/admit diagnosis, the need for outpatient follow up, a family practitioner, to return to the emergency department if symptoms worsen or persist or if there are any questions or concerns that arise at home. 06/26 11:22 Order name: Dressing - Wound; Complete Time: 12:32 kb 06/26 11:22 Order name: Gloves, Sterile; Complete Time: 11:28 kb 06/26 11:22 Order name: Prolene, Sutures; Complete Time: 11:28 kb 06/26 11:22 Order name: Setup Suture Tray; Complete Time: :28 kb Administered Medications: No medications were administered Disposition: 19:49 Co-signature as Attending Physician, Joel Cintron MD I agree with the assessment and kdr plan of care. Disposition Summary: 06/26/21 12:05 Discharge Ordered Location: Home kb Condition: Stable kb Diagnosis - Laceration without foreign body of left little finger with damage to nail, initial kb encounter Followup: kb - With: Emergency Department - When: As needed - Reason: Worsening of condition Followup: kb - With: Private Physician - When: 2 - 3 days - Reason: Recheck today's complaints, Continuance of care, Re-evaluation by your physician Discharge Instructions: - Discharge Summary Sheet kb - Laceration Care, Adult, [id number] kb Forms: - Medication Reconciliation Form kb - Thank You Letter kb - Antibiotic Education kb - Prescription Opioid Use kb Signatures: Caroline Anand, REGISTERED APPRAISER-C REGISTERED APPRAISER-Ckb Joel Cintron MD MD kdr Nisha Cruz RN RN vg1 Corrections: (The following items were deleted from the chart) 10:19 10:18 PMHx: Glaucoma; vg1 vg1 10:19 10:18 PMHx: staph infection; vg1 vg1 10:19 10:18 PMHx: Non-Hodgkins Lymphoma; vg1 vg1 10:19 10:18 PMHx: Hypothyroidism; vg1 vg1 10:19 10:18 PMHx: Hypertension; vg1 vg1 10:19 10:18 PMHx: CVA; vg1 vg1
[2021-06-26 12:42] VITALS: TEMP 97.9; O2SAT 100
[2021-06-26 12:43] VITALS: BP 186/91
== END 2021-06-26 12:33 | disposition home or self-care (01) ==
LOC: ER 09:58
PROC: 0JQK0ZZ Repair Left Hand Subcutaneous Tissue and Fascia, Open Approach (ICD-10-PCS; principal; 2021-06-26)
DX: S61.217A Laceration without foreign body of left little finger without damage to nail, initial encounter (principal); W26.0XXA Contact with knife, initial encounter; Y93.G9 Activity, other involving cooking and grilling; Y92.000 Kitchen of unspecified non-institutional (private) residence as the place of occurrence of the external cause
CPT/HCPCS: 99281

== ENCOUNTER 2021-07-04 09:07 | Emergency (ER) | payer OTHER ==
--- OUTSIDE RECORDS SUMMARY | 2021-07-04 09:11 | XMS REPORT | Continuity of Care Document ---
:1945 Author Organization [facility] t Address [address] [place] [address] Dr. Aguilar [address] [place] [address] Care Team Providers Name Role Phone FISH [...] Univers GARRET INGREDI 2-31 ity of 00:00: [address] [place] Drug Active Rash 2018- Univers garret Allergy 2-31 ity of 00:00: [address] NO KNOWN Drug Active Univers ALLERGIE Class ity of [facility] Social History Social Habit Start Date Stop Date Quantity Comments Source Alcohol intake 2020-07-31 2020-07-31 Current drinker Unive rsity of 00:00:00 00:00:00 of alcohol [place] [facility] (finding) Branch History SDOH 2020-07-31 2020-07-31 99 University o f Alcohol Frequency 00:00:00 00:00:00 [place] [facility] History SDOH 2020-07-31 2020-07-31 1 University o f Alcohol Std 00:00:00 00:00:00 [place] [facility] Drinks [facility] History [facility] 2020-07-31 2020-07-31 99 University o f Alcohol Binge 00:00:00 00:00:00 [place] [facility] Tobacco use and 2020-07-31 2020-07-31 Never used Universit y of exposure 00:00:00 00:00:00 [facility] Sex Assigned At [address] [facility] [place] [place] y of 00:00:00 00:00:00 [facility] Smoking Status Start Date Stop Date Source Unknown if ever smoked [facility] Never smoker [facility] Medications Ordered Filled Start Stop Current Ordering Indication Dosage Frequency Signature Comments Components Source Medication Medication Date Date Medication? Clinician (SIG) Name Name aspirin 81 Yes 81mg Take 81 mg U nivers mg EC 1-20 by mouth. ity of tablet 19:58: [address] brinzolamid Yes 1[drp] 1 Drop. U nivers e 1 % 1-20 ity of ophthalmic 19:58: [place] suspension Medical drops Branch foLIC acid Yes 1mg Take 1 mg Un lefty 1 mg tablet 1-20 by mouth. ity of 19:58: [address] multivitami Yes 1{tbl} Take 1 Un lefty n tablet 1-20 tablet by ity of 19:58: mouth. [address] levothyroxi Yes 100ug Take 100 U nivers ne 100 mcg 1-20 mcg by ity of tablet 19:58: mouth. [address] Yes Place in U nivers te 1-20 each eye. ity of (DUREZOL) 19:58: [place] 0.05 % Drop [address] [place] [address] in U nivers -Timolol 1-20 each eye. ity of (COMBIGAN) 19:58: [place] 0.2-0.5 % [address] [place] [address] ophthalmic Branch drops mirabegron Yes Take by Uni vers (MYRBETRIQ) 1-20 mouth. ity of 50 mg 19:58: [place] tablet [address] [place] [address] Lactobacill Yes Take by Un lefty us 1-20 mouth. ity of acidophilus 19:58: [place] (PROBIOTIC Medical ORAL) Branch BIOTIN ORAL Yes Take by Un lefty 1-20 mouth. ity of 19:58: [address] psyllium Yes Take by Unive rs seed, with 1-20 mouth. ity of dextrose, 19:58: [place] (FIBER 49 Medical ORAL) [place] docusate Yes Take by Unive rs sodium 1-20 mouth. ity of (STOOL 19:58: [place] SOFTENER 49 Medical ORAL) [place] atorvastati 2019-07 Yes 40mg Take 40 mg Univers n 40 mg 1-14 by mouth ity of tablet 00:00: at [place] 00 bedtime. [facility] Procedures Procedure Date / Time Performing Clinician Source Performed PATIENT QUESTIONNAIRE 2020-12-13 05:01:00 Doctor Unassigned, No [facility] ASSIGNMENT OF BENEFITS 2020-07-31 19:34:11 Doctor Unassigned, No [facility] Encounters Start End Encounter Admission Attending Care Care Encounter Source Date/Time Date/Time Type Type Clinicians Facility Department ID 2021-04-28 2021-04-28 Outpatient [facility] [id number] Univers 09:00:00 09:00:00 [id number] ity [facility] 2021-04-28 2021-04-28 Outpatient [facility] [id number] Univers 09:00:00 09:00:00 ity [facility] 2020-12-13 2020-12-13 Orders Doctor ANDERSON [id number] Univers 00:00:00 00:00:00 Only Unassigned, CRISTOBAL [id number] ity of [facility] [id number] Jose Roberto as [phone] [address] 2020-08-17 2020-08-17 Outpatient [facility] [id number] Univers 08:30:00 08:30:00 [id number] ity [facility] 2020-08-17 2020-08-17 Outpatient [facility] [id number] Univers 08:30:00 08:30:00 ity [facility] 2020-08-01 2020-08-01 Outpatient [facility] [id number] Univers 14:00:00 14:00:00 ity [facility] 2020-07-31 2020-07-31 Outpatient [facility] [id number] Univers 13:45:00 13:45:[address] [facility] 2020-07-31 2020-07-31 Orders Doctor MONICA [id number] Univers 00:00:00 00:00:00 Only Unassigned, CRISTOBAL [id number] ity of [facility] [id number] Jose Roberto as [phone] [address] Results Test Description Test Time Test [...] V erified Date/Time: 07/14/2019 08:09:32 Reading Location: [facility] Radiology Reading Room CT, CTA CORONARY WITH CALCIUM EVAL AND FFR [id number] 17:09:00Addendum BeginsREPORT STATUS:A Addendum: I agree with the previously described non vascular findings. End of addendum. Signed: Cheyenne Stewart MDReport Verified Date/Time: 07/13/2019 17:09:37 Reading Location: [facility] ER Reading RoomAddendum EndsFINAL REPORT PATIENT ID: [id number] coronary angiography, 13-Jul-19 INDICATION: This is a 73 -year old male presents with bradycardia. TECHNIQUE: Spiral acquisition before and during intravenous contrast administration using [employer] multidetector CT scanner. Multi-planar 3-D volume-rendering reconstruction [...] performed. Coronary calcification was analyzed using the [employer] system software. These are the results of [...] non-vascular findings will be reviewed by the [facility] Radiologist and addendum will be added as needed. Major vascular findings were discussed with the [facility] Pcu Rn at the time of dictation. Signed: Kevin Santana [facility] Verified Date/Time: 07/13/2019 09:48:28 [id number] 08:18:00 Test Item Value Reference Range Interpretation Comments MAGNESIUM (BEAKER) (test code = 2.0 mg/dL 1.6-2.6 627) COMPREHENSIVE METABOLIC [id number] 08:18:00 Test Item Value Reference Range Interpretation [...] PATIEN TS. CBC W/PLT COUNT & AUTO [id number] 08:01:00 Test Item Value Reference Range Interpretation [...] = 2801) CBC W/PLT COUNT & AUTO [id number] 09:57:00 Test Item Value Reference Range Interpretation [...] 3438) Received comment: User comments: Slide comments:HEMOGLOBIN [id number] 09:46:00 Test Item Value Reference Range Interpretation Comments HEMOGLOBIN A1C (BEAKER) (test code = 5.0 % 4.3-6.1 368) [id number] 05:33:00 Test Item Value Reference Range Interpretation Comments MAGNESIUM (BEAKER) (test code = 2.1 mg/dL 1.6-2.6 627) COMPREHENSIVE METABOLIC [id number] 05:33:00 Test Item Value Reference Range Interpretation [...] FOR DIALYSIS PATIEN TS. TSH/FREE T4 IF [id number] 16:58:00 Test Item Value Reference Range Interpretation Comments THYROID STIMULATING HORMONE 2.30 uIU/mL 0.35-4.94 (BEAKER) (test code = 772) B-TYPE NATRIURETIC FACTOR (BNP)2019-07-11 16:43:00 Test Item Value Reference Range Interpretation Comments B-TYPE NATRIURETIC PEPTIDE (BEAKER) 503 pg/mL 0-100 H (test code = 700) CBC W/PLT COUNT & AUTO [id number] 16:42:00 Test Item Value Reference Range Interpretation [...] K/uL 0.00-0.00 H (CELLAVISION)(BEAKER) (test code = 0938) TOTAL COUNTED (BEAKER) (test code = 100 [...] = 3435) Received comment: User comments: Slide comments:[id number] 16:40:00 Test Item Value Reference Range Interpretation Comments PHOSPHORUS (BEAKER) (test code = 3.2 mg/dL 2.3-4.7 604) [id number] 16:40:00 Test Item Value Reference Range Interpretation Comments MAGNESIUM (BEAKER) (test code = 2.0 mg/dL 1.6-2.6 627) COMPREHENSIVE METABOLIC [id number] 16:40:00 Test Item Value Reference Range Interpretation [...] NOT APPLICABLE FOR DIALYSIS PATIEN TS. PROTHROMBIN TIME/[id number] 16:20:00 Test Item Value Reference Range Interpretation [...]
--- NOTE | 2021-07-04 09:24 | ER ---
Nurse's Notes [facility] Name: Karol Beckett Age: 75 yrs Sex: Female : 1945 Arrival Date: 07/04/2021 Time: 09:08 Bed Waiting Private MD: Diagnosis: Encounter for removal of sutures Presentation: 07/04 09:17 Chief complaint: Patient states: Here to have sutures removed from L fifth finger. Pt ss reports her sutures were placed 8 days ago. Coronavirus screen: Client denies travel out of the [place] in the last 14 days. Ebola Screen: Patient denies exposure to infectious person. Patient denies travel to an Ebola-affected area in the 21 days before illness onset. Initial Sepsis Screen: Does the patient meet any 2 criteria? No. Patient's initial sepsis screen is negative. Does the patient have a suspected source of infection? No. Patient's initial sepsis screen is negative. Risk Assessment: Do you want to hurt yourself or someone else? Patient reports no desire to harm self or others. Onset of symptoms was June 26, 2021. 09:17 Method Of Arrival: Ambulatory ss 09:17 Acuity: EITAN 4 ss Historical: - Allergies: 09:18 No Known Allergies; ss Screenin:19 Abuse screen: Denies threats or abuse. Denies injuries from another. Nutritional ss screening: No deficits noted. Tuberculosis screening: Never had TB. Fall Risk None identified. Assessment: 09:19 General: Appears in no apparent distress. comfortable. Pain: Denies pain. Respiratory: ss Respiratory effort is even, unlabored, Respiratory pattern is regular, symmetrical. Derm: Skin is pink, warm \T\ dry. normal. Vital Signs: 09:17 BP 138 / 100; Pulse 77; Resp 16; Temp 98.4(TE); Pulse Ox 97% on R/A; Pain 0/10; ss ED Course: 09:08 Patient arrived in ED. ds1 09:12 Tito Valdez PA is PHCP. jr8 09:12 Safia Nick MD is Attending Physician. jr8 09:18 Triage completed. ss 09:18 Arm band placed on right wrist. ss 09:19 Patient has correct armband on for positive identification. ss 09:19 No provider procedures requiring assistance completed. Patient did not have IV access ss during this emergency room visit. Removal of Removed sutures from palmar aspect of distal phalanx of left little finger Suture site is well healed Patient tolerated well. 09:24 Winifred Tony, RN is Primary Nurse. ss Administered Medications: No medications were administered Outcome: : Condition: good ss 09:19 Instructed on discharge instructions, follow up and referral plans. : No charge visit due to suture removal. :23 Discharge ordered by . paula 09:24 Discharged to home ambulatory. 09:24 Patient left the ED. ss Signatures: Aileen Naranjo ds1 Winifred Tony, TERRY RN Tito Valdez, KAMRON LUNDY jr8
--- NOTE | 2021-07-04 09:24 | EDPHYS ---
Physician Documentation [facility] Name: Karol Beckett Age: 75 yrs Sex: Female : 1945 Arrival Date: 07/04/2021 Time: 09:08 Bed Waiting Private MD: ED Physician Safia Nick HPI: 07/04 09:21 This 75 yrs old Black Female presents to ER via Ambulatory with complaints of Suture jr8 Removal. 09:21 The patient has sutures on the palmar aspect of distal phalanx of left little finger. jr8 Previous treatment: The patient was initially treated 8 day(s) ago. Sutures/nettie progress: The patient has no c/o's. The wound is well-healing with no redness, swelling, discharge, or dehiscence reported. The patient has not experienced similar symptoms in the past. The patient has not recently seen a physician. Patient had sutures from a cooking accident 8 days ago. Has been doing well since incident . Historical: - Allergies: 09:18 No Known Allergies; ss ROS: 09:21 Constitutional: Negative for fever, chills, and weight loss, MS/Extremity: Negative for jr8 injury and deformity, Skin: Negative for injury, rash, and discoloration. 09:21 All other systems are negative. Exam: 09:21 Constitutional: This is a well developed, well nourished patient who is awake, alert, jr8 and in no acute distress. Cardiovascular: Regular rate and rhythm with a normal S1 and S2. No gallops, murmurs, or rubs. Normal PMI, no JVD. No pulse deficits. Respiratory: Lungs have equal breath sounds bilaterally, clear to auscultation and percussion. No rales, rhonchi or wheezes noted. No increased work of breathing, no retractions or nasal flaring. MS/ Extremity: Pulses equal, no cyanosis. Neurovascular intact. Full, normal range of motion. Neuro: Awake and alert, GCS 15, oriented to person, place, time, and situation. Motor strength 5/5 in all extremities. Sensory grossly intact. 09:21 Skin: Wound recheck: Suture laceration closure: the wound is healing well, the edges are well approximated, no evidence of dehiscence, no drainage, no erythema, no swelling. Vital Signs: 09:17 BP 138 / 100; Pulse 77; Resp 16; Temp 98.4(TE); Pulse Ox 97% on R/A; Pain 0/10; ss Procedures: 09:21 Suture/Staple removal: Removed 4 sutures, from palmar aspect of distal phalanx of left jr8 little finger, site appears well healed, dressed with band aid, Patient tolerated well. MDM: 09:12 Patient medically screened. jr8 09:21 Data reviewed: vital signs, nurses notes. Data interpreted: Pulse oximetry: on room air jr8 is 97 %. Interpretation: normal. Counseling: I had a detailed discussion with the patient and/or guardian regarding: the historical points, exam findings, and any diagnostic results supporting the discharge/admit diagnosis, the need for outpatient follow up, a family practitioner, to return to the emergency department if symptoms worsen or persist or if there are any questions or concerns that arise at home. Administered Medications: No medications were administered Disposition Summary: 07/04/21 09:23 Discharge Ordered Location: Home jr8 Problem: new jr8 Symptoms: have improved jr8 Condition: Stable jr8 Diagnosis - Encounter for removal of sutures jr8 Followup: jr8 - With: Private Physician - When: As needed - Reason: Wound Recheck, Recheck today's complaints, Continuance of care, Re-evaluation by your physician Discharge Instructions: - Discharge Summary Sheet jr8 - Suture Removal, Care After jr8 Forms: - Medication Reconciliation Form jr8 - Thank You Letter jr8 - Antibiotic Education jr8 - Prescription Opioid Use jr8 Addendum: 07/06/2021 18:47 Co-signature as Attending Physician, Safia Nick MD PA/INDEX EDITOR's history reviewed, m a2 patient interviewed, and examined. I agree with assessment and care plan and confirm the diagnosis (es) above. Signatures: Winifred Tony RN RN ss Tito Valdez PA PA jr8 Safia Nick MD MD ma2
[2021-07-04 09:30] VITALS: BP 138/100; TEMP 98.4; O2SAT 97
== END 2021-07-04 09:24 | disposition home or self-care (01) ==
LOC: ER 09:07
DX: Z48.02 Encounter for removal of sutures (principal)